=== PATIENT | female | born 1935 | race African-American/Black ===

== ENCOUNTER 2019-08-28 05:15 | Inpatient (IN) | payer MEDICARE, MEDICAID ==
[2019-08-28 05:48] LABS: #Eosinphils 0.1 thou/uL (0.0-0.7); #Lymphocytes 2.2 thou/uL (1.20-3.40); #Monocytes 0.6 thou/uL (0.11-0.59); #Neutrophils 4.7 thou/uL (1.40-6.50); %Basophils 0.5 % (0.0-1.0); %Eosinophils 1.3 % (0.0-10.0); %Lymphocytes 28.7 % (21.0-51.0); %Monocytes 7.8 % (0.0-10.0); %Neutrophils 61.7 % (42.0-75.0); Hemoglobin 10.4 g/dL (12.0-16.0); Mean Corpuscular HGB CONC 32.4 g/dL (32.0-36.0); Mean Corpuscular Hemoglobin 24.7 pg (27.0-31.0); Mean Corpuscular Volume 76.3 fL (78.0-98.0); Mean Platelet Volume 8.7 fL (7.4-10.4); Platelet Count 162 thou/uL (130-400); RBC Distribution Width 15.1 % (11.5-14.5); Red Blood Cell (RBC) Count 4.19 mill/uL (4.20-5.40); White Blood Cell (WBC) Count 7.6 thou/uL (4.8-10.8)
[2019-08-28 06:07] LABS: ALT (SGPT) 7 U/L (8-55); AST (SGOT) 17 U/L (5-34); Albumin 4.3 g/dL (3.4-4.8); Alkaline Phosphatase 119 U/L (40-110); Anion Gap 18 mmol/L (10-20); BUN (Urea Nitrogen) 27 mg/dL (9.8-20.1); Bilirubin, Total 0.3 mg/dL (0.2-1.2); Calc. Creatinine Clearance 0 mL/min (70-130); Calcium 9.5 mg/dL (7.8-10.44); Carbon Dioxide 22 mmol/L (23-31); Chloride 102 mmol/L (98-107); Estimated GFR-MDRD 44; Globulin 4.4 g/dL (2.4-3.5); Glucose 145 mg/dL (83-110); Potassium 3.6 mmol/L (3.5-5.1); Protein, Total 8.7 g/dL (6.0-8.3); Sodium 138 mmol/L (136-145)
--- NOTE | 2019-08-28 09:34 | RAD ---
CHEST 1 VIEW: Date: 08/28/19 HISTORY: Atrial fibrillation with rapid ventricular rate. COMPARISON: 11/22/16. FINDINGS: Mild vascular congestion. Heart size is within normal limits. No confluent pneumonia, overt edema, or pleural effusion. IMPRESSION: Bilateral vascular congestion. POS: [facility]
[2019-08-28 12:00] LABS: Troponin I 0.078 ng/mL (< 0.028)
[2019-08-28 15:40] VITALS: BMI 27.4
--- NOTE | 2019-08-28 18:42 | CON ---
DATE OF CONSULTATION: 08/28/2019 INDICATION FOR CONSULTATION: An 83-year-old female, who is being seen in the emergency room after she was admitted with atrial fibrillation rapid ventricular response. She has had a history of this in the past. She has been followed by Dr. Trujillo. She has severe aortic valve stenosis, was advised to undergo TAVR procedure. She has always refused to do so, but may at this time be more amenable to at least considering it. I do not know whether or not she has any underlying coronary artery disease. However, this patient has been seen also by my nurse practitioner. We have discussed the case and also she is the patient of Dr. Ortiz. At this time, she is in the emergency room. She was given IV diltiazem and she converted back to normal sinus rhythm, has remained in sinus rhythm. During the episodes of the atrial fibrillation, which started early this morning, she complains of shortness of breath, but denied any chest pain, or any further dyspnea nor did she complaint of any nausea or vomiting. At this time, once she is back in sinus rhythm, she feels quite well and she actually thought she could go home, but it is best that she be observed at least overnight to see whether or not we may start her on some type of antiarrhythmic medications. I can certainly can determine whether or not she see human service specialist and then again, we will re-explore the possibility of a TAVR. At this time, she remains stable. PAST MEDICAL HISTORY: Please refer the notes dictated by the nurse practitioner. SOCIAL HISTORY: Please refer the notes dictated by the nurse practitioner. FAMILY HISTORY: Please refer the notes dictated by the nurse practitioner. REVIEW OF SYSTEMS: Please refer the notes dictated by the nurse practitioner. MEDICATIONS: Please refer the notes dictated by the nurse practitioner. ALLERGIES: PLEASE REFER THE NOTES DICTATED BY THE NURSE PRACTITIONER. PHYSICAL EXAMINATION: GENERAL: Reveals an elderly female, who is in no acute distress at this time. She is alert. She is oriented. VITAL SIGNS: Her blood pressure is stable. Her vital signs are stable otherwise. Heart rates in the 70s, which shows a sinus rhythm at this time. Her blood pressure was 148/51 and heart rate was 71. HEENT: Shows head to be normocephalic and atraumatic. Carotid pulses are present. She has bilateral carotid bruits, which is radiating from the aortic area. CHEST: Actually was clear to auscultation without rales, rhonchi, or wheezing CARDIOVASCULAR: Reveals a regular rate and rhythm at this time. She has a harsh systolic murmur over the aortic area and also with the apex of the left ventricle, which may be some radiation from the aortic area also. Actually, the murmurs are heard over the entire precordium. GI: Abdominal exam is soft and nontender. She has positive bowel sounds. She has obesity. EXTREMITIES: No clubbing or cyanosis. She had minimal ankle edema at this time. NEUROLOGIC: She appears to be fully intact for someone of her age. LABORATORY DATA: Please refer to the notes already dictated by the nurse practitioner. IMPRESSION AND PLAN: 1. Elderly female with atrial fibrillation rapid ventricular response, which was easily converted to sinus rhythm by the use of diltiazem. She has been seen by Dr. Ortiz. I believe he started her back on her home medications, which include beta blockers, but she has been switched to metoprolol. We will continue this medication. 2. History of severe aortic valve stenosis. This will be revisited by Dr. Trujillo when he visits with the patient tomorrow, whether or not she may be a candidate to undergo transcatheter aortic valve replacement. She may need to undergo a cardiac catheterization prior to this to rule out evidence for underlying coronary artery disease, if she is agreeable to do so. As far as her other medical problems are concerned, this will be dealt with by the primary care physician. Job ID: [id number]
[2019-08-28] MEDS: Apixaban 5 MG TAB PO SCH (20:48)
--- NOTE | 2019-08-28 23:02 | CON ---
DATE OF CONSULTATION: PRIMARY CARE PHYSICIAN: Huseyin Ortiz MD PRIMARY CHECKROOM CHIEF: Jerry Canas MD REASON FOR CARDIOLOGY CONSULTATION: Atrial fibrillation with rapid ventricular response and palpitation. HISTORY OF PRESENT ILLNESS: Ms. Griffin is an 83-year-old female with significant history of hypertension, congestive heart failure, moderate to severe aortic valve stenosis, diabetes, and hyperlipidemia. The patient was doing relatively well. According to the patient's family member, the patient is always active, keep moving; however, early this morning, around 2 to 3 o'clock in a.m., she started feeling palpitation and fast beat in in her chest with a burning-like sensation in the heart. Due to those reasons, the patient's family member took this patient to the emergency department for further evaluation and treatment. The patient had diltiazem 50 mg IV push around 05:30 this morning. The patient converted back to sinus rhythm. Since then, the patient's heart rates have been 60s to 80s with sinus rhythm. Prior to, during and after the episode, the patient denies chest pain, heaviness, tightness, shortness of breath, dizziness, lightheadedness, or any other cardiac complaints except burning-like sensation in her left arm and mediastinal borders. The patient is asymptomatic at this moment with stable vital signs. The patient had echocardiograms done in November 2016 with EF 50% to 55%, left ventricular hypertrophy, MAC with mild MR and heavily calcified aortic valve with moderate to severe . The patient was recommended to have the valve replacement; however, the patient declined. Since then, the patient was doing well according to the patient's family member. However, the patient's family member states the patient's leg is swelling lately, even though she does not take much fluid intake, around 1500 mL per day. The patient has not had a stress test at this moment. The patient had a followup with Dr. Canas in the past, but in the last 1 year, she has not seen any [employer] certified network professional. 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 PAST SURGICAL HISTORY: None. The patient declined aortic valve replacement before in 2016. FAMILY HISTORY: The patient has already strong family history of cancer, CVA, hypertension, diabetes. The patient's father and one of her sister and 2 of her brothers due to myocardial infarction. ALLERGIES: SHE HAS NO KNOWN DRUG ALLERGIES. REVIEW OF SYSTEMS: 12-point review of systems negative unless otherwise mentioned in the HPI. PHYSICAL EXAMINATION: VITAL SIGNS: Blood pressure 127/59, heart rate 70s to 60s with sinus rhythm. GENERAL: The patient is alert and oriented x4, not in acute distress. HEENT: Normocephalic, atraumatic. EYES: Extraocular muscle movements intact. ENT and mouth; oral and nasal mucosa moist without lesion. NECK: Supple. Normal range of motion. No JVD. RESPIRATORY: Clear to auscultate bilaterally, but diminished at the bases. CARDIOVASCULAR: Regular rate and rhythm. Normal S1 and S2. No S3 or S4. No significant murmur, hives, or thrill noted. 2+ pulses in bilateral upper and lower extremities. No edema in the lower extremities at this moment. Carotid pulses are present with a bruit possible from murmur radiated to the bilateral carotid arteries. The patient has a positive murmur with ABDOMEN: Soft, nontender. No mass to palpitate. Bowel sounds are present. MUSCULOSKELETAL: The patient able to move all extremities without difficulty. The patient denied claudication. SKIN: Warm and dry. No lesion, rash, or erythema noted. NEUROLOGIC: The patient is alert and oriented x4, nonfocal. PSYCHIATRIC: The patient's mood is appropriate. LABORATORY DATA: WBC 7.6, hemoglobin 10.4, which is normal for her, hematocrit 32.0, platelet 162. Sodium 138, potassium 3.6, BUN 27, creatinine 1.37, glucose 145, AST 17, ALT 7. Troponin is 0.018 0.014, 0.078. BNP 81. Chest x-ray shows bilateral vascular congestion. ASSESSMENT AND PLAN: New onset atrial fibrillation with rapid ventricular response. The patient has converted back to sinus rhythm around 5:30 this morning without Cardizem 15 mg IV push. Since then, the patient remained in sinus rhythm with heart rate 70s to 80s. The patient is asymptomatic at this moment. Fortunately, she is not on any medication to stay away from atrial fibrillation at this moment. We would like to resume all the patient's home medication. She is on metoprolol succinate 50 mg once a day at home and aspirin 81 mg once a day. The patient might be discharged to home with heart monitor to continue to monitor the patient's cardiac rhythm. History of aortic valve stenosis. The patient is asymptomatic, although the patient's family member concerned about swelling in the lower extremities. She has been on Lasix 40 mg 2 tablets daily with potassium 20 mEq once a day. Echocardiogram is going to be ordered for this patient; however, the patient might be able to have the test done as outpatient setting by Dr. Canas. Acute kidney injury. The patient's creatinine level is slightly elevated today, possible dehydration. We recommend the patient have extra fluids. Hypertension. The patient's blood pressure has been stable at this moment. Hyperlipidemia. She is on simvastatin 20 mg once a day at home. Diabetes type 2. She is on metformin 500 mg once a day at home, which is managed by primary care doctor. Edema in the lower extremities. The patient's condition is stable at this moment. We like the echocardiogram, this is going to be ordered for this patient. However, again the patient might be able to take the test as an outpatient by Dr. Canas. Thank you very much for Cardiology Service to participate in the care of this patient. We will follow along the patient's care team and make further recommendations as appropriate. ADDENDUM: Atrial fibrillation: We recommend the patient start the Eliquis 5 mg twice a day, although the patient's age more than 50. The patient's kidney function is later to be stable. We would like to start Eliquis at 5 mg twice a day. However, we would like to continue to check the kidney function and we recommend to keep the patient at observation to see over the night and we would like to defer that decision to Dr. Ortiz and Dr. Canas from tomorrow. We recommend to cut down the Norvasc from 10 mg to 5 mg once a day due to swelling in the lower extremities and the patient might need some stronger antiarrhythmic medication. Job ID: [id number]
[2019-08-29 05:20] LABS: Hemoglobin 9.1 g/dL (12.0-16.0); Platelet Count 141 thou/uL (130-400)
[2019-08-29 05:21] LABS: Anion Gap 13 mmol/L (10-20); BUN (Urea Nitrogen) 17 mg/dL (9.8-20.1); Calc. Creatinine Clearance 48 mL/min (70-130); Calcium 9.1 mg/dL (7.8-10.44); Carbon Dioxide 23 mmol/L (23-31); Chloride 109 mmol/L (98-107); Estimated GFR-MDRD 65; Glucose 106 mg/dL (83-110); Potassium 3.9 mmol/L (3.5-5.1); Sodium 141 mmol/L (136-145)
[2019-08-29] MEDS: Apixaban 5 MG TAB PO SCH ×2 (09:06→20:58)
[2019-08-29] MEDS ORDERED: Insulin Regular 300 UNITS/3 ML VIAL SC PRN (11:33)
[2019-08-29] MEDS ORDERED: Dextrose 50% Abboject 50 ML SYRINGE IVP PRN (11:33)
[2019-08-29] MEDS ORDERED: Dextrose 5% in Water 1,000 ML IV PRN (11:33)
[2019-08-29 19:24] LABS: Bacteria/HPF 4+ HPF (None Seen); Bilirubin Negative (Negative); Blood, Urine Trace (Negative); Clarity Turbid (Clear); Glucose, Urine (Dipstick) Normal (Negative); Leukocyte 500 Leu/uL (Negative); Nitrite Negative (Negative); Protein, Urine (Dipstick) Negative (Neg-Trace); RBC/HPF 0-3 HPF (0-3); Squamous Epithelial 0-3 HPF (0-3); Urobilinogen Normal mg/dL (Less than 2); WBC/HPF Greater than 50 HPF (0-3)
[2019-08-29] MEDS: Atorvastatin Calcium 10 MG TAB PO SCH (20:58)
[2019-08-29] MEDS: metFORMIN 500 MG TAB PO SCH (20:58)
[2019-08-29] MEDS ORDERED: Atorvastatin Calcium 10 MG TAB PO SCH (21:00)
--- NOTE | 2019-08-29 21:37 | RAD ---
EXAM: XR Ankle Lt 3 View STANDARD PROVIDED CLINICAL HISTORY: Pain FINDINGS: There is no evidence for fracture or other acute osseous abnormality. Alignment appears anatomic. Ghazala nt spaces appear preserved. Prominence of the soft tissues about each malleolus. Plantar calcaneal enthesophyte formation. IMPRESSION: No evidence for an acute osseous abnormality. If there is persistent clinical concern, conservative m anagement and follow-up imaging advised.
--- NOTE | 2019-08-30 08:03 | HP ---
CHIEF COMPLAINT: Palpitations and heart racing. HISTORY OF PRESENT ILLNESS: Ms. Griffin is an 83-year-old from female with past medical history of hypertension, diabetes mellitus, and aortic stenosis, came because of heart pounding and racing, she woke up in the night because of the heart was racing fast. She did not have any chest pain, but she felt short of breath, so EMS was called. EMS found the patient with rapid heart rate , possibly atrial fibrillation with RVR. In the ER, the patient was asymptomatic. The patient received a dose of Cardizem after which she converted to normal sinus rhythm. Currently, she does not have any shortness of breath or chest pain. She feels better. The patient was in the hospital in 2017 with similar episode. At that time, she was thought to have SVT. PAST MEDICAL HISTORY: 1. Insulin-dependent diabetes mellitus. 2. Hypertension. 3. Hyperlipidemia. 4. History of leg edema. 5. Severe aortic stenosis. PAST SURGICAL HISTORY: Nothing significant. CURRENT MEDICATIONS: The patient is on: 1. Amlodipine 10 mg daily. 2. Lasix 80 mg daily. 3. Simvastatin 20 mg daily. 4. Aspirin 81 mg. 5. Benazepril 40 mg daily. 6. KCl 40 mEq daily. 7. Atenolol 50 mg bid 8. Metformin 500 mg bid ALLERGIES: NKDA. FAMILY HISTORY: Nothing contributory. SOCIAL HISTORY: The patient lives with her family. No history of smoking. No history of alcohol. REVIEW OF SYSTEMS: CARDIOVASCULAR: No chest pain. Has shortness of breath. RESPIRATORY: No fever or cough. GASTROINTESTINAL: No nausea or vomiting. No abdominal pain. CENTRAL NERVOUS SYSTEM: No headache. No dizziness. PHYSICAL EXAMINATION: GENERAL: The patient is alert, awake, oriented x3. VITAL SIGNS: Temperature 98, pulse 114 initially, respirations 20, blood pressure 120/60. HEENT: Head is normocephalic and atraumatic. Pupils are equal and reactive. Nasopharynx is pale and dry. NECK: Supple. No JVD. LUNGS: Bilateral air entry present. No rales, no rhonchi. HEART: S1 and S2, irregular. ABDOMEN: Soft. No distention. No tenderness. Normal bowel sounds present. RECTAL: Deferred. CENTRAL NERVOUS SYSTEM: No focal deficit. LABORATORY DATA: CBC shows WBC 7.6, hemoglobin 10, hematocrit 32, platelets 162. Metabolic panel; sodium 138, potassium 3.6, chloride 102, CO2 is 22, urea nitrogen 27, creatinine 1.3, glucose 145, alkaline phosphatase 119. Troponin I 0.018. BNP 81. EKG shows atrial fibrillation with rapid ventricular rate of 113. Initial chest x-ray shows bilateral vascular congestion. ASSESSMENT: 1. Atrial fibrillation with rapid ventricular rate. 2. Hypertension. 3. Diabetes mellitus. 4. Hyperlipidemia. 5. Severe aortic stenosis. PLAN: 1. Vital signs q.4 hours. 2. Activity as tolerated. 3. Allergies, NKDA. 4. Hep-Lock. 5. Accu-Chek before meals and at bedtime. 6. Sliding scale mild with regular insulin. 7. Troponin I q.6 hours x2. 8. Echocardiogram. 9. Continue home medications. 10. asa daily 11. Cardiology consult. Job ID: [id number] CINDY
[2019-08-30] MEDS: Potassium Chloride 20 MEQ TAB PO SCH (08:43)
[2019-08-30] MEDS: Lisinopril 20 MG TAB PO SCH (08:44)
[2019-08-30] MEDS: Aspirin 81 mg Enteric Coated Tablet PO SCH (08:44)
[2019-08-30] MEDS: metFORMIN 500 MG TAB PO SCH ×2 (08:44→20:43)
[2019-08-30] MEDS: Apixaban 5 MG TAB PO SCH ×2 (08:44→20:43)
[2019-08-30] MEDS: Amlodipine 10 MG TAB PO SCH (08:44)
[2019-08-30] MEDS: Furosemide 80 MG TAB PO SCH (08:44)
[2019-08-30] MEDS: Atorvastatin Calcium 10 MG TAB PO SCH (20:44)
[2019-08-31 04:40] LABS: #Eosinphils 0.2 thou/uL (0.0-0.7); #Lymphocytes 2.5 thou/uL (1.20-3.40); #Monocytes 0.6 thou/uL (0.11-0.59); #Neutrophils 4.2 thou/uL (1.40-6.50); %Basophils 0.2 % (0.0-1.0); %Eosinophils 2.1 % (0.0-10.0); %Lymphocytes 33.7 % (21.0-51.0); %Monocytes 7.8 % (0.0-10.0); %Neutrophils 56.2 % (42.0-75.0); Hemoglobin 8.8 g/dL (12.0-16.0); Mean Corpuscular HGB CONC 33.7 g/dL (32.0-36.0); Mean Corpuscular Hemoglobin 25.8 pg (27.0-31.0); Mean Corpuscular Volume 76.6 fL (78.0-98.0); Mean Platelet Volume 8.4 fL (7.4-10.4); Platelet Count 147 thou/uL (130-400); RBC Distribution Width 14.7 % (11.5-14.5); Red Blood Cell (RBC) Count 3.39 mill/uL (4.20-5.40); White Blood Cell (WBC) Count 7.5 thou/uL (4.8-10.8)
[2019-08-31 05:06] LABS: Anion Gap 14 mmol/L (10-20); BUN (Urea Nitrogen) 28 mg/dL (9.8-20.1); Calc. Creatinine Clearance 44 mL/min (70-130); Calcium 9.1 mg/dL (7.8-10.44); Carbon Dioxide 23 mmol/L (23-31); Chloride 106 mmol/L (98-107); Estimated GFR-MDRD 59; Glucose 101 mg/dL (83-110); Potassium 3.6 mmol/L (3.5-5.1); Sodium 139 mmol/L (136-145)
[2019-08-31] MEDS: metFORMIN 500 MG TAB PO SCH ×2 (09:29→20:28)
[2019-08-31] MEDS: Potassium Chloride 20 MEQ TAB PO SCH (09:29)
[2019-08-31] MEDS: Aspirin 81 mg Enteric Coated Tablet PO SCH (09:30)
[2019-08-31] MEDS: Apixaban 5 MG TAB PO SCH ×2 (09:30→20:28)
[2019-08-31] MEDS: Lisinopril 20 MG TAB PO SCH (09:30)
[2019-08-31] MEDS: Furosemide 80 MG TAB PO SCH (09:30)
[2019-08-31] MEDS: Amlodipine 10 MG TAB PO SCH (09:30)
[2019-08-31] MEDS: Atorvastatin Calcium 10 MG TAB PO SCH (20:27)
[2019-09-01 05:12] LABS: Hemoglobin 8.5 g/dL (12.0-16.0); Platelet Count 168 thou/uL (130-400)
[2019-09-01 05:32] LABS: Anion Gap 15 mmol/L (10-20); BUN (Urea Nitrogen) 37 mg/dL (9.8-20.1); Calc. Creatinine Clearance 44 mL/min (70-130); Calcium 9.2 mg/dL (7.8-10.44); Carbon Dioxide 23 mmol/L (23-31); Chloride 104 mmol/L (98-107); Estimated GFR-MDRD 53; Glucose 100 mg/dL (83-110); Potassium 3.9 mmol/L (3.5-5.1); Sodium 138 mmol/L (136-145)
[2019-09-01] MEDS: Apixaban 5 MG TAB PO SCH (09:17)
[2019-09-01] MEDS: Lisinopril 20 MG TAB PO SCH (09:17)
[2019-09-01] MEDS: Furosemide 80 MG TAB PO SCH (09:17)
[2019-09-01] MEDS: metFORMIN 500 MG TAB PO SCH (09:17)
[2019-09-01] MEDS: Potassium Chloride 20 MEQ TAB PO SCH (09:18)
[2019-09-01] MEDS ORDERED: Lisinopril 20 MG TAB PO SCH (09:45)
[2019-09-01 11:27] VITALS: BP 100/57; TEMP 98.8
[2019-09-01 14:04] LABS: Iron 25 ug/dL (50-170); Iron Binding Capacity, Total 305 mcg/dL (265-497)
[2019-09-02] MEDS ORDERED: Lisinopril 20 MG TAB PO SCH (09:00)
--- NOTE | 2019-09-03 01:45 | PQF ---
BEA BLOCK VENKAT R MD [id number] [facility] [id number] CLINICAL DOCUMENTATION CLARIFICATION FORM: POST DISCHARGE Addendum to original discharge summary date: ____ Late entry note date: __ DATE: 09/03/19 ATTN: Huseyin Mondragon Please exercise your independent, professional judgment in responding to the clarification form. Clinical indicators are provided on the bottom of this form for your review Can you please further clarify the type and acuity of CHF? Please check appropriate box(s): HEART FAILURE: A. TYPE: [ ] Systolic / HFrEF [ y ] Diastolic / HFpEF [ ] Combined Systolic / Diastolic B. ACUITY [ ] Acute [ ] Acute on Chronic [ y ] Chronic [ ] Other diagnosis [ ] Unable to determine In addition, please specify: Present on Admission (POA): [ y] Yes [ ] No [ ] Unable to determine For continuity of documentation, please document condition throughout progress notes and discharge summary. Thank You. CLINICAL INDICATORS - SIGNS / SYMPTOMS / LABS ED Notes 08/28 "Associated with SOB" ED Notes 08/28 "patient presents for evaluation of heart racing and irregular heart beat" Chest Xray 08/28 "bilateral vascular congestion" Consult 08/28 "Echo was done in November 2016 with EF 50%-55%" Consult 08/28 "patient's leg is swelling lately" RISKS: ED Notes 08/28-83 years old female ED Notes 08/28-Afib ED Notes 08/28-HTN ED Notes 08/28-DM Consult 08/28-Aortic stenosis Consult 08/28-HLD TREATMENTS: Collected 08/28-Chest Xray HP 08/28-Echo HP 08/28-Cardiology consult NOV 27-Cardizem 25mg IV NOV 27-Eliquis 5mg Oral NOV 27-IVF NOV 27-Lipitor 10mg Oral MAR 08/30-Lasix 80mg Oral (This form is maintained as a part of the permanent medical record) 2014 [employer]. All Rights Reserved [email or web address] [not provided] MTDD
--- NOTE | 2019-09-04 18:27 | DIS ---
DATE OF ADMISSION: 08/28/2019 DATE OF DISCHARGE: 09/01/2019 ADMITTING DIAGNOSES: 1. Atrial fibrillation with rapid ventricular rate. 2. Hypertension. 3. Diabetes mellitus. 4. Severe aortic stenosis. FINAL DIAGNOSES: 1. Atrial fibrillation with rapid ventricular rate, improved. 2. Left ankle injury, contusion. 3. Hypertension. 4. Diabetes mellitus. 5. Severe aortic stenosis. 6. Hyperlipidemia. BRIEF SUMMARY OF HOSPITAL COURSE: Ms. Griffin is an 83-year-old -[place] female, admitted because of heart pumping fast, palpitation, dizziness. The patient was found to be in atrial fib with RVR. She was given Cardizem and IVP, after which she changed to normal sinus rhythm. Cardiology consult was done. The patient was seen by Dr. Conroy, who suggested to continue with metoprolol. She also says aortic stenosis, may be can be re-evaluated by Dr. Trujillo. Dr. Trujillo saw the patient later on and increased the dose of metoprolol. The patient remained in normal sinus rhythm throughout her hospital stay. The patient complained of left ankle pain. X-rays revealed no fracture. Sharan bandage was applied. The patient is ambulating well. No shortness of breath. In view of improvement, the patient is being discharged home. At the time of discharge, she was stable, her vital signs stable, lungs clear, heart sound regular, abdomen is soft and nontender. Bowel sounds present. DISCHARGE MEDICATIONS: 1. Lasix 80 mg daily. 2. Simvastatin 20 mg daily. 3. Metoprolol succinate 50 mg daily. 4. Eliquis 5 mg b.i.d. 5. Lisinopril 20 mg daily. 6. Metformin 250 b.i.d. 7. KCl 40 mEq daily. Her benazepril was discontinued. Aspirin was also discontinued. Amlodipine was also discontinued. FOLLOWUP: The patient will come for followup in 2 weeks. Job ID: [id number]
== END 2019-09-01 14:51 | disposition home or self-care (01) | DRG 309 ==
LOC: ERS 05:15 → ERHOLD 05:42 → 2NO 18:26
PROVIDERS: ADMIT Internal Medicine; ATTEND Internal Medicine
DX: I48.91 Unspecified atrial fibrillation (principal); N17.9 Acute kidney failure, unspecified; I50.32 Chronic diastolic (congestive) heart failure; E11.9 Type 2 diabetes mellitus without complications; I11.0 Hypertensive heart disease with heart failure; E78.5 Hyperlipidemia, unspecified; I34.0 Nonrheumatic mitral (valve) insufficiency; H91.92 Unspecified hearing loss, left ear; Z79.82 Long term (current) use of aspirin; Z79.899 Other long term (current) drug therapy; Z95.2 Presence of prosthetic heart valve; Z79.84 Long term (current) use of oral hypoglycemic drugs
CPT/HCPCS: 36415; 36416; 71045; 80048; 80053; 81001; 82607; 82728; 82746; 83540; 83550; 83880; 84484; 85014; 85018; 85025; 85049; 93005; 96374; J1815

== ENCOUNTER 2019-09-14 05:01 | Inpatient (IN) | payer MEDICARE, MEDICAID ==
[2019-09-14 05:48] LABS: #Basophils 0.1 thou/uL (0.0-0.2); #Eosinphils 0.1 thou/uL (0.0-0.7); #Lymphocytes 2.7 thou/uL (1.20-3.40); #Monocytes 0.4 thou/uL (0.11-0.59); #Neutrophils 4.3 thou/uL (1.40-6.50); %Basophils 0.8 % (0.0-1.0); %Eosinophils 1.2 % (0.0-10.0); %Lymphocytes 35.2 % (21.0-51.0); %Monocytes 5.5 % (0.0-10.0); %Neutrophils 57.3 % (42.0-75.0); Hemoglobin 6.2 g/dL (12.0-16.0); Mean Corpuscular Hemoglobin 25.5 pg (27.0-31.0); Mean Corpuscular Volume 77.3 fL (78.0-98.0); Mean Platelet Volume 7.4 fL (7.4-10.4); Platelet Count 240 thou/uL (130-400); RBC Distribution Width 14.8 % (11.5-14.5); Red Blood Cell (RBC) Count 2.44 mill/uL (4.20-5.40); White Blood Cell (WBC) Count 7.6 thou/uL (4.8-10.8)
[2019-09-14 06:11] LABS: ALT (SGPT) 8 U/L (8-55); AST (SGOT) 11 U/L (5-34); Albumin 3.6 g/dL (3.4-4.8); Alkaline Phosphatase 73 U/L (40-110); Anion Gap 14 mmol/L (10-20); BUN (Urea Nitrogen) 63 mg/dL (9.8-20.1); Bilirubin, Total 0.2 mg/dL (0.2-1.2); Calc. Creatinine Clearance 0 mL/min (70-130); Calcium 8.9 mg/dL (7.8-10.44); Carbon Dioxide 23 mmol/L (23-31); Chloride 102 mmol/L (98-107); Estimated GFR-MDRD 35; Globulin 3.5 g/dL (2.4-3.5); Glucose 107 mg/dL (83-110); Potassium 4.4 mmol/L (3.5-5.1); Protein, Total 7.1 g/dL (6.0-8.3); Sodium 135 mmol/L (136-145)
--- NOTE | 2019-09-14 07:54 | RAD ---
EXAM: Single view of the chest HISTORY: Substernal chest pain COMPARISON: 08/28/2019 FINDINGS: Single view of the chest shows a normal sized cardiomediastinal silhouette. There is no donna dence of consolidation, mass, or pleural effusion. Degenerative changes are seen in the spine. IMPRESSION: No evidence of acute cardiopulmonary disease
[2019-09-14 09:38] VITALS: BMI 30.9
[2019-09-14 09:49] LABS: Troponin I Less than 0.010 ng/mL (< 0.028)
[2019-09-14] MEDS ORDERED: Dextrose 50% Abboject 50 ML SYRINGE IVP PRN (10:53)
[2019-09-14] MEDS ORDERED: Dextrose 5% in Water 1,000 ML IV PRN (10:53)
[2019-09-14] MEDS ORDERED: Insulin Regular 300 UNITS/3 ML VIAL SC PRN (10:53)
[2019-09-14 11:31] LABS: #Eosinphils 0.1 thou/uL (0.0-0.7); #Lymphocytes 2.6 thou/uL (1.20-3.40); #Monocytes 0.5 thou/uL (0.11-0.59); #Neutrophils 4.5 thou/uL (1.40-6.50); %Basophils 0.4 % (0.0-1.0); %Eosinophils 1.2 % (0.0-10.0); %Lymphocytes 33.8 % (21.0-51.0); %Monocytes 6.5 % (0.0-10.0); %Neutrophils 58.1 % (42.0-75.0); Mean Corpuscular HGB CONC 33.4 g/dL (32.0-36.0); Mean Corpuscular Hemoglobin 26.2 pg (27.0-31.0); Mean Corpuscular Volume 78.4 fL (78.0-98.0); Mean Platelet Volume 7.4 fL (7.4-10.4); Platelet Count 218 thou/uL (130-400); RBC Distribution Width 14.9 % (11.5-14.5); Red Blood Cell (RBC) Count 2.67 mill/uL (4.20-5.40); White Blood Cell (WBC) Count 7.7 thou/uL (4.8-10.8)
[2019-09-14 11:50] LABS: Anion Gap 14 mmol/L (10-20); BUN (Urea Nitrogen) 60 mg/dL (9.8-20.1); Calc. Creatinine Clearance 36 mL/min (70-130); Calcium 8.7 mg/dL (7.8-10.44); Carbon Dioxide 21 mmol/L (23-31); Chloride 106 mmol/L (98-107); Estimated GFR-MDRD 43; Glucose 93 mg/dL (83-110); Potassium 4.5 mmol/L (3.5-5.1); Sodium 136 mmol/L (136-145)
[2019-09-14 11:56] LABS: Troponin I 0.036 ng/mL (< 0.028)
[2019-09-14] MEDS ORDERED: Sodium Chloride 0.9% (PF) 10 ML VIAL FS PRN (14:55)
[2019-09-14] MEDS ORDERED: Pantoprazole 40 MG VIAL IVP SCH (15:00)
--- NOTE | 2019-09-14 21:23 | HP ---
CHIEF COMPLAINT: Chest tightness, palpitation, shortness of breath. HISTORY OF PRESENT ILLNESS: Ms. Griffin is an 83-year-old female with past medical history of severe aortic stenosis, hypertension, atrial fibrillation; anemia, chronic, came because of started having palpitation and chest tightness and had some shortness of breath also. Lasted a few minutes and it was not getting better and the chest tightness was started getting worse, so she called ambulance. EMS gave her nitroglycerin spray. By the time she came to the hospital, her chest tightness and palpitation resolved. The patient also says she has been feeling weak, has been dizzy as well, but no nausea or vomiting. No headache. No fever. The patient was also found to be severely anemic while in the ER. Hemoglobin was 6.2. The patient was recently in the hospital with atrial fibrillation with rapid ventricular rate at that time. When she left the hospital, her hemoglobin was 8.5. The patient denies any melenic stool or blood in stool. The patient has been placed on Eliquis for her atrial fibrillation on the last admission. Currently, the patient does not have any chest pain. PAST MEDICAL HISTORY: 1. Severe aortic stenosis. 2. Hypertension. 3. Diabetes mellitus. 4. Chronic anemia. 5. Hyperlipidemia. 6. History of atrial fibrillation converted to normal sinus. PAST SURGICAL HISTORY: Nothing significant. CURRENT MEDICATIONS: The patient is on: 1. Eliquis 5 mg b.i.d. 2. Lasix 80 mg daily. 3. Lisinopril 20 mg daily. 4. Metformin 500 b.i.d. 5. Metoprolol 50 mg daily. 6. KCl 20 mEq daily. 7. Simvastatin 20 mg daily. ALLERGIES: NKDA. FAMILY HISTORY: Nothing contributory. SOCIAL HISTORY: The patient lives with family. No history of smoking. No history of alcohol or drug abuse. REVIEW OF SYSTEMS: CARDIOVASCULAR: Has chest pain and shortness of breath. RESPIRATORY: No fever or cough. GASTROINTESTINAL: No abdominal pain. No distention. No nausea or vomiting. CENTRAL NERVOUS SYSTEM: No headache. Has dizziness. PHYSICAL EXAMINATION: GENERAL: The patient is alert, awake, oriented x3. VITAL SIGNS: Temperature 98, pulse 76, respirations 20, blood pressure 130/50. HEENT: Head is normocephalic, atraumatic. Pupils are equal and reactive. Nasopharynx is pale and dry. NECK: Supple. No JVD. LUNGS: Bilateral air entry present. No rales, no rhonchi. HEART: S1 and S2, regular. ABDOMEN: Soft. No distention. No tenderness. No organomegaly. Bowel sounds present. NEUROLOGICAL: No focal deficit. LABORATORY DATA: CBC shows WBC 7.6, hemoglobin 6.2, hematocrit 18, platelets 240. Metabolic panel; sodium 135, potassium 4.4, chloride 100, glucose 107. EKG shows normal sinus rhythm with right bundle branch block and left anterior fascicular block. No acute ST-T changes seen. Chest x-ray negative. ASSESSMENT: 1. Severe anemia, symptomatic. 2. Chest pain, shortness of breath, rule out myocardial infarction. 3. Severe aortic stenosis. 4. History of atrial fibrillation. 5. Diabetes mellitus. 6. Hypertension. PLAN: 1. Vital signs q.4 hours. 2. Activity as tolerated. 3. Allergies, NKDA. 4. Hep-Lock. 5. Diet, ADA. 6. Continue home medications. 7. Accu-Chek before meals and at bedtime and sliding scale mild with regular insulin. 8. Protonix 40 IV piggyback daily. 9. Echocardiogram. 10. GI consult. 11. Cardiology consult. Job ID: [id number] MTDD
[2019-09-14] MEDS: Atorvastatin Calcium 10 MG TAB PO SCH (21:29)
[2019-09-14] MEDS: metFORMIN 500 MG TAB PO SCH (21:29)
--- NOTE | 2019-09-14 22:32 | CON ---
DATE OF CONSULTATION: PRIMARY CRM DYNAMICS DEVELOPER: Evan Trujillo MD. REASON FOR ADMISSION: Shortness of breath, palpitations, aortic stenosis, and anemia. HISTORY OF PRESENT ILLNESS: Ms. Griffin is a delightful 83-year-old woman. She recently was hospitalized on 08/28, of this year with palpitations and feeling of her heart racing. She is found to be in atrial fibrillation. She received Cardizem. The patient was started on Eliquis and released home. She previously had been known to have moderate to severe aortic stenosis in 2017. At that time, she declined a potential aortic valve replacement, but the patient is reconsidering that now. The patient's most symptoms in this admission were weakness, fatigue, lack of energy, and palpitations. She is also found to be severely anemic on this admission. She has received packed red blood cells. She did not have chest pain, but did have palpitations. PAST MEDICAL HISTORY: 1. Insulin-dependent diabetes mellitus. 2. Hypertension. 3. Aortic stenosis. 4. Edema. MEDICATIONS: Prior to admission, 1. Lasix 80 mg a day. 2. Metoprolol succinate 50 mg a day. 3. Apixaban 5 mg twice a day. 4. Lisinopril 20 mg a day. 5. Potassium. 6. Metformin. ALLERGIES: NONE KNOWN. SOCIAL HISTORY: No alcohol or tobacco. She does have a very supportive family. REVIEW OF SYSTEMS: CONSTITUTIONAL: No significant weight gain or loss. VISION: No changes. HEARING: No changes. PULMONARY: No cough or wheezing. GASTROINTESTINAL: No nausea, vomiting, or diarrhea. SKIN: No rashes. NEUROLOGICAL: No unilateral weakness or numbness. PSYCHIATRIC: No unusual depression or anxiety. PHYSICAL EXAMINATION: GENERAL: This is a pleasant 83-year-old woman, in no distress. VITAL SIGNS: Blood pressure 107/50, pulse now 60. HEENT: Eyes, sclerae nonicteric. Mouth, mucous membranes moist. NECK: Supple. No lymphadenopathy. LUNGS: Clear. CARDIAC: Normal S1, normal S2. There is a 3/6 crescendo-decrescendo murmur heard loudest at the left upper sternal border. No diastolic murmur. No S3. ABDOMEN: Soft, nontender. EXTREMITIES: No clubbing or cyanosis. There is mild peripheral edema. SKIN: Warm and dry. PSYCHIATRIC: Mood and affect normal. NEUROLOGICAL: Grossly normal. LABORATORY DATA: The patient has received 2 units of packed red blood cells. The most recent hemoglobin is still severely depressed at 7, it was 6.2 at 5:30 in the morning, it was 8.5 just before she left, it is 10.4 on admission on 08/28. ASSESSMENT: 1. Aortic stenosis, moderate to severe in 2017, likely severe now. 2. She has a bifascicular block on EKG. 3. Anemia, likely due to GI blood loss. PLAN: 1. Agree with stopping Eliquis. 2. Agree with packed red blood cells. 3. Will need GI evaluation once the Eliquis levels are low in 1 to 2 days and will undergo further evaluation. 4. Ultimately consider cardiac catheterization and transcutaneous aortic valve replacement. Echocardiogram to be done first tomorrow. The patient is considering the possibility of having her valve replaced if it could be done percutaneously. Job ID: [id number]
[2019-09-15 03:04] LABS: #Eosinphils 0.1 thou/uL (0.0-0.7); #Lymphocytes 2.6 thou/uL (1.20-3.40); #Monocytes 0.5 thou/uL (0.11-0.59); #Neutrophils 4.8 thou/uL (1.40-6.50); %Basophils 0.5 % (0.0-1.0); %Eosinophils 1.3 % (0.0-10.0); %Lymphocytes 32.8 % (21.0-51.0); %Monocytes 5.7 % (0.0-10.0); %Neutrophils 59.7 % (42.0-75.0); Hemoglobin 8.2 g/dL (12.0-16.0); Mean Corpuscular HGB CONC 33.3 g/dL (32.0-36.0); Mean Corpuscular Hemoglobin 26.6 pg (27.0-31.0); Mean Corpuscular Volume 79.9 fL (78.0-98.0); Mean Platelet Volume 7.1 fL (7.4-10.4); Platelet Count 224 thou/uL (130-400); RBC Distribution Width 14.6 % (11.5-14.5); Red Blood Cell (RBC) Count 3.09 mill/uL (4.20-5.40); White Blood Cell (WBC) Count 8.1 thou/uL (4.8-10.8)
[2019-09-15 03:27] LABS: Anion Gap 14 mmol/L (10-20); BUN (Urea Nitrogen) 49 mg/dL (9.8-20.1); Calc. Creatinine Clearance 38 mL/min (70-130); Calcium 9.1 mg/dL (7.8-10.44); Carbon Dioxide 21 mmol/L (23-31); Chloride 107 mmol/L (98-107); Estimated GFR-MDRD 45; Glucose 90 mg/dL (83-110); Potassium 4.5 mmol/L (3.5-5.1); Sodium 137 mmol/L (136-145)
[2019-09-15] MEDS: Potassium Chloride 20 MEQ TAB PO SCH (08:54)
[2019-09-15] MEDS: metFORMIN 500 MG TAB PO SCH ×2 (08:54→19:53)
[2019-09-15] MEDS: Pantoprazole 40 MG VIAL IVP SCH (08:54)
[2019-09-15] MEDS: Lisinopril 20 MG TAB PO SCH (08:55)
[2019-09-15] MEDS ORDERED: Furosemide 80 MG TAB PO SCH (09:00)
--- NOTE | 2019-09-15 12:53 | PRG ---
DATE OF SERVICE: 09/15/2019 SUBJECTIVE: Ms. Kendrick Griffin is a very pleasant 83-year-old female with mild stenosis, recently diagnosed atrial fibrillation. She was placed on Eliquis about 10 days ago. She presented to the ER with anemia, dyspnea, and history of black tarry stool. She had a stool last night and the stool was dark as per the patient's family. The stool was sent for stool guaiac, and surprisingly, the fecal occult blood came back negative. The patient actually feeling better after transfusion. Denies any chest pain, any palpitation, or any dyspnea. No abdominal pain. No nausea or vomiting. OBJECTIVE: VITAL SIGNS: Afebrile. Temperature 98.3 degrees Fahrenheit, pulse is 69, blood pressure 105/50. CARDIOVASCULAR SYSTEM: First and second heart sounds. She has a grade 4/6 systolic murmur. LUNGS: Clear to auscultation. ABDOMEN: Soft. Abdomen is nontender. No organomegaly. No masses. CLINICAL IMPRESSION: Acute anemia, possibly upper GI bleeding. Surprisingly, the stool guaiac came back negative for occult blood. PLAN: EGD tomorrow morning and I will make further recommendations. Job ID: [id number]
--- NOTE | 2019-09-15 16:50 | PRG ---
DATE OF SERVICE: 09/15/2019 SUBJECTIVE: Ms. Griffin is doing fine. No complaints. She feels well. OBJECTIVE: VITAL SIGNS: Blood pressure 120/57; pulse 58, it is regular. LUNGS: Clear. CARDIAC: There is a loud aortic stenosis murmur as before. ABDOMEN: Soft and nontender. EXTREMITIES: No edema. IMAGING STUDIES: Echocardiogram shows she has normal left ventricular function, but she has severe aortic stenosis with peak gradient 90 mmHg, mean gradient 52 mmHg. ASSESSMENT: 1. Anemia, likely related to gastrointestinal blood loss. Hemoglobin is now up to 8.2. 2. Severe aortic stenosis. PLAN: 1. She will undergo upper endoscopy to see if there is evidence of an area of GI blood loss. 2. Ultimately, she would need to undergo cardiac catheterization for consideration for transcutaneous aortic valve replacement. Okay to proceed to upper endoscopy tomorrow with sedation. We need to find out if there is a GI blood loss source prior to any interventions. Job ID: [id number]
[2019-09-15] MEDS: Atorvastatin Calcium 10 MG TAB PO SCH (19:53)
[2019-09-16] MEDS: metFORMIN 500 MG TAB PO SCH ×2 (09:25→21:16)
[2019-09-16] MEDS: Furosemide 40 MG TAB PO SCH (09:25)
[2019-09-16] MEDS: Pantoprazole 40 MG VIAL IVP SCH (09:25)
[2019-09-16] MEDS: Potassium Chloride 20 MEQ TAB PO SCH (09:25)
[2019-09-16] MEDS: Lisinopril 20 MG TAB PO SCH (09:25)
[2019-09-16] MEDS ORDERED: PHENYLEPHRINE-NS 100 MCG/ML 10 ML SYRINGE ONE (10:32)
[2019-09-16] MEDS ORDERED: Lidocaine 1% PF 5 ML VIAL ONE (10:32)
[2019-09-16] MEDS ORDERED: PROPOFOL 200 MG/20 ML VIAL ONE (10:33)
[2019-09-16] MEDS ORDERED: Ondansetron HCl/PF 4 MG/2 ML Vial IVP PRN (14:19)
--- NOTE | 2019-09-16 16:37 | OP ---
DATE OF PROCEDURE: 09/16/2019 PROCEDURE PERFORMED: Esophagogastroduodenoscopy with control of hemorrhage. INDICATIONS FOR PROCEDURE: Anemia, melena while on anticoagulation. DESCRIPTION OF PROCEDURE: After the risks and benefits of the procedure were explained to the patient, including risks of bleeding, infection, perforation, reactions to anesthesia, aspiration and/or pain, informed consent was obtained. The patient was then taken to the endoscopy suite, where she was placed in the left lateral decubitus position, followed by the introduction of propofol via Anesthesia support. Once adequate sedation was achieved, the standard gastroscope was introduced into the mouth with intubation of the esophagus, stomach, and the proximal small intestines with the findings listed below. Upon conclusion of the procedure, all equipment was removed from the patient and she was transferred to PACU in satisfactory condition. FINDINGS: Esophagus: Normal-appearing mucosa was seen in the proximal and mid esophagus with what appeared to be possible glycogenic acanthosis; however, salmon-colored mucosa was seen in the distal esophagus extending up from the gastroesophageal junction in 1 tongue, but was less than 1 cm in length. Biopsies were not taken given the small length of this particular section of Champagne's type mucosa. Otherwise, there was no evidence of erosions, ulcerations, mass lesions, or active/recent bleeding. Stomach: Normal-appearing mucosa was seen in the gastric cardia, fundus, body, greater curvature, antrum, and incisura upon initial evaluation; however, with manipulation with the scope, small blood clots were noted along the incisura. They were successfully treated with argon plasma coagulation. In the course of using the APC and further manipulation of the gastric mucosa, another area of bleeding was also noted, that was also successfully treated with APC along the lesser curvature. Otherwise, there was no evidence of erosions, ulcerations, or mass lesions. 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 This was intervened upon with argon plasma coagulation with good hemostasis achieved at the end of the maneuver and no further bleeding seen. Further examination did not reveal any further AVMs including the third portion of the duodenum. There was otherwise no evidence of erosions, ulcerations, or mass lesions. IMPRESSION: 1. 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 2. Increased mucosal friability of the gastric mucosa status post argon plasma coagulation. 3. Champagne's type mucosa in the distal esophagus, but less than 1 cm in length (not biopsied during this examination given low likelihood of progression adenocarcinoma). 4. Glycogenic acanthosis of the esophagus. RECOMMENDATIONS: 1. Would continue to trend her hemoglobin and hematocrit and transfuse as necessary to maintain hemoglobin and hematocrit of 7/21. 2. Continue to monitor clinically for signs of active GI bleeding. 3. Would hold any anticoagulation for at least the next 3 to 4 days and then consider restarting with careful monitoring of the patient afterwards. 4. Would continue the patient on PPI 40 mg daily. 5. Advance the patient's diet as tolerated. 6. No further EGD is indicated at this time. We will continue to follow. Please call with any questions. Job ID: [id number]
[2019-09-16] MEDS: Atorvastatin Calcium 10 MG TAB PO SCH (21:16)
[2019-09-17 05:36] LABS: #Eosinphils 0.1 thou/uL (0.0-0.7); #Lymphocytes 1.8 thou/uL (1.20-3.40); #Monocytes 0.5 thou/uL (0.11-0.59); #Neutrophils 6.3 thou/uL (1.40-6.50); %Basophils 0.4 % (0.0-1.0); %Lymphocytes 20.3 % (21.0-51.0); %Monocytes 5.9 % (0.0-10.0); %Neutrophils 72.4 % (42.0-75.0); Hemoglobin 8.4 g/dL (12.0-16.0); Mean Corpuscular HGB CONC 30.8 g/dL (32.0-36.0); Mean Corpuscular Hemoglobin 24.9 pg (27.0-31.0); Mean Corpuscular Volume 80.8 fL (78.0-98.0); Mean Platelet Volume 7.1 fL (7.4-10.4); Platelet Count 240 thou/uL (130-400); RBC Distribution Width 15.1 % (11.5-14.5); Red Blood Cell (RBC) Count 3.36 mill/uL (4.20-5.40); White Blood Cell (WBC) Count 8.7 thou/uL (4.8-10.8)
[2019-09-17 05:48] LABS: Anion Gap 13 mmol/L (10-20); BUN (Urea Nitrogen) 27 mg/dL (9.8-20.1); Calc. Creatinine Clearance 35 mL/min (70-130); Calcium 9.2 mg/dL (7.8-10.44); Carbon Dioxide 25 mmol/L (23-31); Chloride 104 mmol/L (98-107); Estimated GFR-MDRD 41; Glucose 97 mg/dL (83-110); Potassium 4.9 mmol/L (3.5-5.1); Sodium 137 mmol/L (136-145)
[2019-09-17] MEDS: metFORMIN 500 MG TAB PO SCH ×2 (08:29→20:58)
[2019-09-17] MEDS: Pantoprazole 40 MG VIAL IVP SCH (08:29)
[2019-09-17] MEDS: Furosemide 40 MG TAB PO SCH (08:29)
[2019-09-17] MEDS: Potassium Chloride 20 MEQ TAB PO SCH (08:29)
[2019-09-17] MEDS: Lisinopril 20 MG TAB PO SCH (08:29)
--- NOTE | 2019-09-17 11:37 | PRG ---
DATE OF SERVICE: 09/17/2019 SUBJECTIVE: An 83-year-old black female hospitalized over the weekend because of drop in blood count. The anemia is actually acute. The patient underwent EGD by Dr. Abel Kirkland yesterday. She was found to have a bleeding AVM over the duodenum, which was cauterized. The patient done well overnight. She has no abdominal pain. No nausea or vomiting. Her blood count is actually stable today at 8.4. She has had no stool overnight. She complains of some dizziness when she stands up. PHYSICAL EXAMINATION: GENERAL: She is awake and appears comfortable. VITAL SIGNS: Afebrile. Pulse rate had gone up to 110 today. Blood pressure is 91/52. CARDIOVASCULAR SYSTEM: First and second heart sounds are normal. She has systolic murmur. LUNGS: Clear to auscultation. ABDOMEN: Soft. No organomegaly. No tenderness. LABORATORY DATA: The lab data remains same as two days ago. Hemoglobin is 8.4, hematocrit 27.1, WBC 8700. RECOMMENDATION: 1. Iron supplement. 2. Diet as tolerated. 3. Follow up H and H. Job ID: [id number]
[2019-09-17] MEDS: Atorvastatin Calcium 10 MG TAB PO SCH (20:58)
[2019-09-18] MEDS ORDERED: Lisinopril 10 MG TAB PO SCH (09:00)
[2019-09-18] MEDS: Furosemide 40 MG TAB PO SCH (09:12)
[2019-09-18] MEDS: metFORMIN 500 MG TAB PO SCH (09:20)
[2019-09-18] MEDS: Potassium Chloride 20 MEQ TAB PO SCH (09:20)
[2019-09-18] MEDS: Pantoprazole 40 MG VIAL IVP SCH (09:21)
--- NOTE | 2019-09-18 11:11 | PDOC.CPN ---
- Subjective Date: 09/18/19 Time: 11:11 Interval history: The pt seen and examined. No overnight events. No cardiac complaints. - Objective Allergies/Adverse Reactions: Allergies Allergy/AdvReac Type Severity Reaction Status Date / Time No Known Allergies Allergy Verified 08/28/19 15:33 Visit Medications: Current Medications Atorvastatin Calcium (Lipitor) 10 mg PO HS [facility] Last Admin: 09/17/19 20:58 Dose: 10 mg Dextrose/Water (Dextrose 50%) 25 gm IVP PRN PRN PRN Reason: HYPOGLYCEMIA PROTOCOL Furosemide (Lasix) 40 mg PO DAILY [facility] Last Admin: 09/18/19 09:12 Dose: Not Given Glucagon (Glucagon) 1 mg IM PRN PRN PRN Reason: HYPOGLYCEMIA PROTOCOL Dextrose/Water (D5w) 1,000 mls @ 0 mls/hr IV INF PRN PRN Reason: HYPOGLYCEMIA PROTOCOL Insulin Human Regular (Humulin R) 0 units SC .MILD SLIDING PRN; Protocol PRN Reason: MILD SLIDING SCALE Lisinopril (Zestril) 10 mg PO DAILY [facility] Last Admin: 09/18/19 09:12 Dose: Not Given Metformin HCl (Glucophage) 500 mg PO BID [facility] Last Admin: 09/18/19 09:20 Dose: 500 mg Metoprolol Succinate (Toprol Xl) 50 mg PO DAILY [facility] Last Admin: 09/18/19 09:21 Dose: Not Given Pantoprazole Sodium (Protonix) 40 mg IVP DAILY [facility] Last Admin: 09/18/19 09:21 Dose: 40 mg Potassium Chloride (K-Dur) 20 meq PO DAILY [facility] Last Admin: 09/18/19 09:20 Dose: 20 meq Sodium Chloride (Normal Saline Pf) 10 ml FS PRN PRN PRN Reason: RECONSTITUTION Vital Signs & Weight: Vital Signs Temp Pulse Resp BP Pulse Ox 09/18/19 07:46 98.7 F 60 18 102/50 L 98 09/18/19 04:30 98.5 F 60 16 92/43 L 98 09/17/19 23:22 99.2 F 62 16 102/50 L 99 Weight 172 lb 3.2 oz - Physical Exam General: alert & oriented x3 HEENT: mucus membranes moist Neck: supple neck Cardiac: regular rate and rhythm, S1/S2 Lungs: clear to auscultation Neuro: cranial nerve 2-12 intact - Labs Result Diagrams: 09/17/19 04:58 12/31/19 04:58 Troponin/CKMB Troponin I 0.036 ng/mL (< 0.028) H 09/14/19 11:05 - Telemetry Sinus rhythms and dysrhythmias: sinus rhythm - Assessment/Plan Assessment/Plan: 1. Severe - possible RHC and TAVR? 2. Anemia with s/p EGD with cauterization of ulcer on 09/16/2019 - H&H is stable ; managed by GI 3. Prox Afib - in SR; on BBlocker, but not on OAC due to GI bleed MAR reviewed * Echo in 08/2019 with EF 60-65%, mild MR and PAP, severe with peak gradient 90mmHg * Pt. of Dr Trujillo Pt. seen and eval. by me. I agree with the A/P by the VERMIN EXTERMINATOR. Repeat echo today with Pedoff probe still indicates severe . She is considering a possible TAVR. She will need further workup in the near futue when the Hgb. is stable in order to see if she is a candidate. She is feeling better and eating today. chest clear. RRR, murmur. gjmays
[2019-09-18] MEDS: Atorvastatin Calcium 10 MG TAB PO SCH (19:45)
[2019-09-19] MEDS: Pantoprazole 40 MG VIAL IVP SCH (08:59)
[2019-09-19] MEDS ORDERED: Lisinopril 5 MG TAB PO SCH (09:00)
[2019-09-19] MEDS ORDERED: metFORMIN 500 MG TAB PO SCH (09:00)
[2019-09-19] MEDS: Potassium Chloride 20 MEQ TAB PO SCH (09:01)
[2019-09-19] MEDS: Atorvastatin Calcium 10 MG TAB PO SCH (21:22)
[2019-09-20 05:38] LABS: #Basophils 0.1 thou/uL (0.0-0.2); #Eosinphils 0.1 thou/uL (0.0-0.7); #Lymphocytes 1.8 thou/uL (1.20-3.40); #Monocytes 0.6 thou/uL (0.11-0.59); #Neutrophils 3.2 thou/uL (1.40-6.50); %Basophils 0.9 % (0.0-1.0); %Eosinophils 2.1 % (0.0-10.0); %Lymphocytes 31.4 % (21.0-51.0); %Monocytes 10.6 % (0.0-10.0); Mean Corpuscular HGB CONC 32.8 g/dL (32.0-36.0); Mean Corpuscular Hemoglobin 25.7 pg (27.0-31.0); Mean Corpuscular Volume 78.3 fL (78.0-98.0); Mean Platelet Volume 7.7 fL (7.4-10.4); Platelet Count 179 thou/uL (130-400); RBC Distribution Width 14.4 % (11.5-14.5); White Blood Cell (WBC) Count 5.8 thou/uL (4.8-10.8)
[2019-09-20 06:01] LABS: ALT (SGPT) 7 U/L (8-55); AST (SGOT) 15 U/L (5-34); Albumin 3.4 g/dL (3.4-4.8); Alkaline Phosphatase 74 U/L (40-110); Anion Gap 17 mmol/L (10-20); BUN (Urea Nitrogen) 32 mg/dL (9.8-20.1); Bilirubin, Total 0.4 mg/dL (0.2-1.2); Calc. Creatinine Clearance 32 mL/min (70-130); Calcium 8.9 mg/dL (7.8-10.44); Carbon Dioxide 20 mmol/L (23-31); Chloride 104 mmol/L (98-107); Estimated GFR-MDRD 37; Globulin 3.7 g/dL (2.4-3.5); Glucose 93 mg/dL (83-110); Potassium 4.5 mmol/L (3.5-5.1); Protein, Total 7.1 g/dL (6.0-8.3); Sodium 136 mmol/L (136-145)
[2019-09-20] MEDS: Pantoprazole 40 MG VIAL IVP SCH (09:14)
[2019-09-20] MEDS: Potassium Chloride 20 MEQ TAB PO SCH (09:15)
[2019-09-20 15:58] VITALS: BP 119/56; TEMP 98.4
--- NOTE | 2019-09-23 09:47 | CON ---
DATE OF CONSULTATION: 09/14/2019 REASON FOR CONSULTATION: Anemia, dark stool recently. HISTORY OF PRESENT ILLNESS: Ms. Griffin is a very pleasant 83-year-old female hospitalized because of severe anemia. The patient's family is in the room along with the patient. The patient's daughter and son in the room. The patient was recently hospitalized with atrial fibrillation with fast ventricular rate. She was seen by Dr. Erik Conroy at that time. She was converted to sinus rhythm with Diltiazem drip and also subsequently was placed on Eliquis. During the last admission, she had mild anemia. The patient has not seen how the stool was. However, the patient's family tells me the stools are darker for a couple of days. She was found to have some weakness and also some dizziness and also found to have palpitation. She was brought to the ER by the family. She was hospitalized this morning. She was found to have anemia. She has been getting 1 unit of packed RBCs for the first time. The patient has had no stool today. The patient denies abdominal pain, nausea, vomiting, or hematemesis. No dysphagia or odynophagia. The patient admits not seeing how the stool color was, but the family tells me that the stool was darker for a couple of days. The patient has no prior history of any GI bleeding. No past history of peptic ulcer. Her bowel movements are fairly regular. There is no history of any weight loss, etc. MEDICAL ILLNESSES: 1. . 2. Diabetes mellitus. 3. Hypertension. 4. Hard of hearing. 5. Aortic stenosis and patient did not have surgery, but recently she agreed to have surgery. 6. Atrial fibrillation. The patient was placed . ALLERGIES: NONE. SOCIAL HISTORY: The patient does not smoke. FAMILY HISTORY: There is a strong family history of cancer, CVA, hypertension, diabetes. The patient's father and brothers had myocardial infarction. MEDICATIONS: Include; 1. . 2. Metformin. 3. Metoprolol. 4. . 5. Eliquis 5 mg p.o. twice a day. The last dose of Eliquis was last night. . REVIEW OF SYSTEMS: CONSTITUTIONAL: No history of weight loss. No fever. She has good exercise tolerance. HEAD: No chronic headache. She feels dizzy lately. EYES: No impaired vision. EARS: Hearing impairment, no pain or discharge. NOSE: No nose bleed. THROAT: LUNGS: No chronic coughing, no . CARDIOVASCULAR: No palpitation. No chest pain. No dyspnea. : MUSCULOSKELETAL: History of back pain and occasional arthralgias. NEUROPSYCHIATRY: Not known. PHYSICAL EXAMINATION: GENERAL: She appears comfortable, in no VITAL SIGNS: Afebrile. Her pulse is 60, blood pressure 107/50. HEENT: Conjunctivae are clear. NECK: Supple. No adenitis or thyromegaly noted. CARDIOVASCULAR: First and second heart sounds are heard. She had a grade 4/6 systolic murmur in the aortic area and left sternal border. LUNGS: Clear to auscultation. ABDOMEN: Soft. Abdomen is nondistended. Abdomen is nontender. No organomegaly. No masses. EXTREMITIES: LABORATORY DATA: Labs on admission shows anemia. WBC count of 7600, . During last admission on 08/28/2019, she was still anemic with a hemoglobin 10.4, hematocrit 32, it was dropping down to 8.8 and 26 on 08/31/2019, to 8.5 and 25.6 on 09/01/19. At the time of discharge, actually she was mildly anemic. Chemistry panel; sodium 136, potassium 4.5, chloride is 106, bicarb 21, BUN is 60, creatinine 1.42, glucose 93, calcium 8.7, troponin 0.036. Last admission, her lytes were normal. BUN was 37, creatinine 1.17. CLINICAL IMPRESSION: 1. An 83-year-old female with atrial fibrillation of recent onset and was placed on Eliquis during last admission. Since last admission, she was anemic. At the time of discharge, her blood count was actually about 8.5. The patient was found to have profound anemia. She has a history of dark stools. Based on the history and also the lab data, I believe she has upper GI bleeding. I am not sure if this is coming from upper GI tract or lower GI tract. 2. Atrial fibrillation of recent onset. 3. . 4. Hypertension. 5. Diabetes. 6. Aortic stenosis. . RECOMMENDATIONS: 1. Stool for occult blood. 2. Transfuse p.r.n. 3. Empiric PPI. 4. will have to wait 48 hours before the endoscopic studies can be done. The patient was on [employer]. . Job ID: [id number]
== END 2019-09-20 17:30 | disposition home or self-care (01) | DRG 378 ==
LOC: ERS 05:01 → 2SW 06:44 → OBSVTOIN 10:40
PROVIDERS: ADMIT Internal Medicine; ATTEND Emergency Medicine
PROC: 30233N1 Transfusion of Nonautologous Red Blood Cells into Peripheral Vein, Percutaneous Approach (ICD-10-PCS; 2019-09-14)
PROC: 0W3P8ZZ Control Bleeding in Gastrointestinal Tract, Via Natural or Artificial Opening Endoscopic (ICD-10-PCS; principal; 2019-09-16)
DX: K31.811 Angiodysplasia of stomach and duodenum with bleeding (principal); I13.0 Hypertensive heart and chronic kidney disease with heart failure and stage 1 through stage 4 chronic kidney disease, or unspecified chronic kidney disease; I35.0 Nonrheumatic aortic (valve) stenosis; D50.0 Iron deficiency anemia secondary to blood loss (chronic); E11.9 Type 2 diabetes mellitus without complications; I50.9 Heart failure, unspecified; I48.0 Paroxysmal atrial fibrillation; N18.3 Chronic kidney disease, stage 3 (moderate); Z79.01 Long term (current) use of anticoagulants
CPT/HCPCS: 36415; 36416; 36430; 71045; 80048; 80053; 82274; 84484; 85025; 86850; 86900; 86901; 93005; 93306; C9113; J2001; J2704; P9016

== ENCOUNTER 2019-10-30 03:08 | Emergency (ER) | payer MEDICARE, MEDICAID ==
[2019-10-30 03:51] LABS: #Eosinphils 0.1 thou/uL (0.0-0.7); #Lymphocytes 1.8 thou/uL (1.20-3.40); #Monocytes 0.3 thou/uL (0.11-0.59); #Neutrophils 2.9 thou/uL (1.40-6.50); %Basophils 0.7 % (0.0-1.0); %Eosinophils 2.8 % (0.0-10.0); %Lymphocytes 34.4 % (21.0-51.0); %Monocytes 6.2 % (0.0-10.0); %Neutrophils 55.9 % (42.0-75.0); Hemoglobin 8.2 g/dL (12.0-16.0); Mean Corpuscular Hemoglobin 24.2 pg (27.0-31.0); Mean Corpuscular Volume 75.5 fL (78.0-98.0); Mean Platelet Volume 7.7 fL (7.4-10.4); Platelet Count 213 thou/uL (130-400); White Blood Cell (WBC) Count 5.1 thou/uL (4.8-10.8)
[2019-10-30 04:05] LABS: ALT (SGPT) Less than 7 U/L (8-55); AST (SGOT) 12 U/L (5-34); Albumin 3.6 g/dL (3.4-4.8); Alkaline Phosphatase 87 U/L (40-110); Anion Gap 13 mmol/L (10-20); BUN (Urea Nitrogen) 15 mg/dL (9.8-20.1); Bilirubin, Total 0.3 mg/dL (0.2-1.2); Calc. Creatinine Clearance 0 mL/min (70-130); Carbon Dioxide 24 mmol/L (23-31); Chloride 104 mmol/L (98-107); Estimated GFR-MDRD 62; Glucose 99 mg/dL (83-110); Potassium 4.1 mmol/L (3.5-5.1); Protein, Total 7.6 g/dL (6.0-8.3); Sodium 137 mmol/L (136-145)
--- NOTE | 2019-10-30 07:33 | RAD ---
Exam: Chest one view HISTORY:Pain. Comparison: 09/06/2019 FINDINGS: Cardiac silhouette: Normal Aorta: Atherosclerosis of the aortic knob. Pulmonary vessels: Normal Costophrenic angles: Clear LUNGS: No masses or consolidation. Chronic lung parenchymal changes. Pneumothorax: None Osseous abnormalities: None IMPRESSION: No acute cardiopulmonary process. Atherosclerosis.
--- NOTE | 2019-11-02 12:04 | EKG ---
Test Reason : Blood Pressure : / mmHG Vent. Rate : 089 BPM Atrial Rate : 089 BPM P-R Int : 224 ms QRS Dur : 140 ms QT Int : 392 ms P-R-T Axes : 079 -54 059 degrees QTc Int : 476 ms Sinus rhythm with 1st degree A-V block Right bundle branch block Left anterior fascicular block Bifascicular block Voltage criteria for left ventricular hypertrophy Cannot rule out Septal infarct , age undetermined Abnormal ECG Confirmed by KAREN BIRD ([id number]), sports editor HUE MACIAS ([id number]) on 11/02/2019 12:04:36 PM Referred By: Confirmed By:KAREN BIRD
== END 2019-10-30 05:36 | disposition home or self-care (01) ==
LOC: ERS 03:08
DX: R00.2 Palpitations (principal); R07.81 Pleurodynia; R05 Cough; I48.91 Unspecified atrial fibrillation; E11.9 Type 2 diabetes mellitus without complications; I11.0 Hypertensive heart disease with heart failure; I50.9 Heart failure, unspecified; Z79.899 Other long term (current) drug therapy; Z79.82 Long term (current) use of aspirin
CPT/HCPCS: 36415; 71045; 80053; 83880; 84484; 85025; 93005

== ENCOUNTER 2020-07-23 06:50 | Outpatient (CLI) | payer MEDICARE, MEDICAID ==
--- NOTE | 2020-07-23 14:45 | RAD ---
PA AND LATERAL CHEST: Date: 07/23/2020 HISTORY: Preop. FINDINGS: Heart size appears slightly enlarged. Aorta is tortuous. Lungs are clear of infiltrates. There are ar thritic changes of the spine. IMPRESSION: Minimal cardiomegaly. No active intrathoracic disease. POS: ISABEL
[2020-07-23 15:25] LABS: PTT 27.6 sec (22.0-33.0); Prothrombin Time 10.9 sec (9.5-12.1)
[2020-07-23 15:41] LABS: Anion Gap 18 mmol/L (10-20); BUN (Urea Nitrogen) 19 mg/dL (9.8-20.1); Calc. Creatinine Clearance 0 mL/min (70-130); Calcium 9.1 mg/dL (7.8-10.44); Carbon Dioxide 23 mmol/L (23-31); Chloride 104 mmol/L (98-107); Estimated GFR-MDRD 49; Glucose 100 mg/dL (83-110); Potassium 3.9 mmol/L (3.5-5.1); Sodium 141 mmol/L (136-145)
[2020-07-23 16:43] LABS: ALT (SGPT) 12 U/L (8-55); AST (SGOT) 22 U/L (5-34); Albumin 4.1 g/dL (3.4-4.8); Alkaline Phosphatase 94 U/L (40-110); Bilirubin, Direct 0.1 mg/dL (0.1-0.3); Bilirubin, Total 0.3 mg/dL (0.2-1.2); Globulin 3.7 g/dL (2.4-3.5); Protein, Total 7.8 g/dL (6.0-8.3)
[2020-07-24 15:03] LABS: SARS-CoV-2 MS2 Positive; SARS-CoV-2 N Gene Negative; SARS-CoV-2 S Gene Negative; SARS-CoV-2 by NAA Not Detected (NotDetected); SARS-CoV-2 orf1ab Negative
--- NOTE | 2020-07-26 20:54 | EKG ---
Test Reason : Blood Pressure : / mmHG Vent. Rate : 081 BPM Atrial Rate : 081 BPM P-R Int : 244 ms QRS Dur : 146 ms QT Int : 424 ms P-R-T Axes : 079 -55 083 degrees QTc Int : 492 ms Sinus rhythm with 1st degree A-V block Right bundle branch block Left anterior fascicular block Bifascicular block Left ventricular hypertrophy with repolarization abnormality Cannot rule out Septal infarct , age undetermined Abnormal ECG No previous ECGs available Confirmed by Ba CHEATHAM ([id number]) on 07/26/2020 8:53:35 PM Referred By: MERLENE Confirmed By:Ba CHEATHAM
== END 2020-07-23 06:51 | disposition home or self-care (01) ==
LOC: LABBT 06:50
PROVIDERS: ATTEND Internal Medicine Cardiovascular Disease
DX: Z01.818 Encounter for other preprocedural examination (principal); Z20.828 Contact with and (suspected) exposure to other viral communicable diseases
CPT/HCPCS: 71046; 80053; 80076; 85610; 85730; 93005; U0003; 87635; 93010

== ENCOUNTER 2020-07-28 06:40 | Day surgery (SDC) | payer MEDICARE, MEDICAID ==
[2020-07-28 08:28] LABS: Hemoglobin 10.6 g/dL (12.0-16.0); Platelet Count 137 thou/uL (130-400)
[2020-07-28] MEDS ORDERED: Iopamidol 370 76% 100 ML VIAL ONE (08:59)
[2020-07-28] MEDS ORDERED: Acetaminophen 500 MG TAB ONE (12:03)
== END 2020-07-28 17:25 | disposition home or self-care (01) ==
LOC: CCL 06:40
PROVIDERS: ATTEND Internal Medicine Cardiovascular Disease
PROC: 4A023N8 Measurement of Cardiac Sampling and Pressure, Bilateral, Percutaneous Approach (ICD-10-PCS; principal; 2020-07-28)
PROC: B2111ZZ Fluoroscopy of Multiple Coronary Arteries using Low Osmolar Contrast (ICD-10-PCS; 2020-07-28)
DX: I35.0 Nonrheumatic aortic (valve) stenosis (principal); I48.0 Paroxysmal atrial fibrillation; E78.00 Pure hypercholesterolemia, unspecified; I10 Essential (primary) hypertension; E11.9 Type 2 diabetes mellitus without complications; E78.2 Mixed hyperlipidemia; Z79.84 Long term (current) use of oral hypoglycemic drugs; Z79.899 Other long term (current) drug therapy
CPT/HCPCS: 85014; 85018; 85049; 93456; J1644; Q9967

== ENCOUNTER 2020-11-28 00:21 | Inpatient (IN) | payer MEDICARE, OTHER ==
[2020-11-28 01:33] LABS: #Eosinphils 0.1 thou/uL (0.0-0.7); #Lymphocytes 2.6 thou/uL (1.20-3.40); #Monocytes 0.5 thou/uL (0.11-0.59); #Neutrophils 4.6 thou/uL (1.40-6.50); %Basophils 0.6 % (0.0-1.0); %Eosinophils 1.4 % (0.0-10.0); %Monocytes 6.7 % (0.0-10.0); %Neutrophils 58.3 % (42.0-75.0); Hemoglobin 8.8 g/dL (12.0-16.0); Mean Corpuscular HGB CONC 34.1 g/dL (32.0-36.0); Mean Corpuscular Hemoglobin 28.4 pg (27.0-31.0); Mean Corpuscular Volume 83.2 fL (78.0-98.0); Mean Platelet Volume 8.1 fL (7.4-10.4); Platelet Count 158 thou/uL (130-400); RBC Distribution Width 14.2 % (11.5-14.5); Red Blood Cell (RBC) Count 3.11 mill/uL (4.20-5.40)
[2020-11-28 01:34] LABS: Bilirubin Negative (Negative); Blood, Urine Negative (Negative); Clarity Clear (Clear); Glucose, Urine (Dipstick) Normal (Negative); Ketone, Urine Negative (Negative); Leukocyte 500 Leu/uL (Negative); Nitrite Negative (Negative); Protein, Urine (Dipstick) Negative (Neg-Trace); RBC/HPF 0-3 HPF (0-3); Specific Gravity, Urine 1.012 (1.002-1.036); Squamous Epithelial 0-3 HPF (0-3); Urobilinogen Normal mg/dL (Less than 2)
[2020-11-28 01:36] LABS: Bacteria/HPF 1+ HPF (None Seen)
[2020-11-28 01:52] LABS: Anion Gap 17 mmol/L (10-20); BUN (Urea Nitrogen) 36 mg/dL (9.8-20.1); Calc. Creatinine Clearance 0 mL/min (70-130); Carbon Dioxide 23 mmol/L (23-31); Chloride 103 mmol/L (98-107); Potassium 3.6 mmol/L (3.5-5.1); Sodium 139 mmol/L (136-145)
[2020-11-28 01:53] LABS: ALT (SGPT) 9 U/L (8-55); AST (SGOT) 16 U/L (5-34); Albumin 3.8 g/dL (3.4-4.8); Alkaline Phosphatase 111 U/L (40-110); Bilirubin, Total 0.2 mg/dL (0.2-1.2); Calcium 8.8 mg/dL (7.8-10.44); Globulin 3.8 g/dL (2.4-3.5); Glucose 112 mg/dL (83-110); Lipase 65 U/L (8-78); Protein, Total 7.6 g/dL (5.8-8.1)
[2020-11-28 02:13] LABS: CKMB 2.1 ng/mL (0-6.6)
[2020-11-28] MEDS ORDERED: cefTRIAXone\\ROCEPHIN 1 GM VIAL ONE (02:32)
[2020-11-28] MEDS ORDERED: Aspirin Chewable 81 MG TAB ONE (02:32)
[2020-11-28] MEDS ORDERED: Ondansetron PF 4 MG/2 ML Vial IVP PRN (03:13)
[2020-11-28] MEDS ORDERED: Ondansetron ODT 4 MG TAB PO PRN (03:13)
[2020-11-28] MEDS ORDERED: Senokot S 8.6-50 MG TAB PO PRN (03:13)
[2020-11-28] MEDS ORDERED: Calcium Carbonate 500 MG ChewTAB PO PRN (03:13)
[2020-11-28] MEDS ORDERED: Acetaminophen 325 MG TAB PO PRN (03:16)
[2020-11-28] MEDS ORDERED: Dextrose 5% in Water 1,000 ML IV PRN (03:17)
[2020-11-28] MEDS ORDERED: HumaLOG 300 UNITS/3 ML VIAL SC PRN ×2 (03:17)
[2020-11-28] MEDS ORDERED: Dextrose 50% Abboject 50 ML SYRINGE SLOW IVP PRN (03:17)
[2020-11-28] MEDS ORDERED: Acetaminophen 500 MG TAB PO SCH (03:30)
[2020-11-28 06:15] LABS: Cardiac Risk 2.9 (Less than 4.5); Magnesium 1.9 mg/dL (1.6-2.6)
[2020-11-28 06:20] LABS: Troponin I 0.054 ng/mL (< 0.028)
[2020-11-28 07:26] VITALS: BMI 28.3
[2020-11-28] MEDS: Apixaban 2.5 MG TAB PO SCH ×2 (09:08→20:34)
[2020-11-28 09:34] LABS: SARS-CoV-2 PCR by NAA Not Detected (NotDetected)
[2020-11-28 09:44] LABS: Troponin I 0.061 ng/mL (< 0.028)
[2020-11-28] MEDS: Atorvastatin Calcium 10 MG TAB PO SCH (20:34)
[2020-11-29] MEDS: cefTRIAXone\\ROCEPHIN 1 GM in Sodium Chloride 0.9% 100 ML IVPB SCH (03:23)
[2020-11-29] MEDS: Apixaban 2.5 MG TAB PO SCH ×2 (08:51→20:31)
[2020-11-29] MEDS: Ferrous Sulfate 325 MG TAB PO SCH (08:52)
[2020-11-29] MEDS ORDERED: [UNRECOGNIZED DRUG - OTHER] PO SCH (09:00)
[2020-11-29] MEDS ORDERED: MULTIVIT STRESS FORMULA PO SCH (09:00)
[2020-11-29] MEDS ORDERED: ZINC PO SCH (09:00)
[2020-11-29] MEDS: Stress 600 With Zinc 1 TAB PO SCH (11:56)
[2020-11-29] MEDS: Atorvastatin Calcium 10 MG TAB PO SCH (20:31)
[2020-11-30] MEDS: cefTRIAXone\\ROCEPHIN 1 GM in Sodium Chloride 0.9% 100 ML IVPB SCH (01:22)
[2020-11-30 05:29] LABS: #Eosinphils 0.2 thou/uL (0.0-0.7); #Lymphocytes 2.5 thou/uL (1.20-3.40); #Monocytes 0.3 thou/uL (0.11-0.59); #Neutrophils 3.9 thou/uL (1.40-6.50); %Basophils 0.6 % (0.0-1.0); %Eosinophils 2.4 % (0.0-10.0); %Lymphocytes 36.1 % (21.0-51.0); %Monocytes 4.9 % (0.0-10.0); %Neutrophils 55.9 % (42.0-75.0); Hemoglobin 7.6 g/dL (12.0-16.0); Mean Corpuscular HGB CONC 32.3 g/dL (32.0-36.0); Mean Corpuscular Hemoglobin 26.8 pg (27.0-31.0); Mean Platelet Volume 7.5 fL (7.4-10.4); Platelet Count 146 thou/uL (130-400); RBC Distribution Width 14.2 % (11.5-14.5); Red Blood Cell (RBC) Count 2.82 mill/uL (4.20-5.40)
[2020-11-30 05:53] LABS: Anion Gap 11 mmol/L (10-20); BUN (Urea Nitrogen) 19 mg/dL (9.8-20.1); Calc. Creatinine Clearance 44 mL/min (70-130); Calcium 8.6 mg/dL (7.8-10.44); Carbon Dioxide 26 mmol/L (23-31); Chloride 107 mmol/L (98-107); Glucose 95 mg/dL (83-110); Sodium 140 mmol/L (136-145)
[2020-11-30] MEDS: Ferrous Sulfate 325 MG TAB PO SCH (08:23)
[2020-11-30] MEDS: Stress 600 With Zinc 1 TAB PO SCH (09:30)
[2020-11-30] MEDS: Polyethylene Glycol 3350 17 GM Packet PO SCH (09:30)
[2020-11-30] MEDS: Apixaban 2.5 MG TAB PO SCH ×2 (09:30→19:58)
[2020-11-30] MEDS: Atorvastatin Calcium 10 MG TAB PO SCH (19:58)
[2020-12-01] MEDS: cefTRIAXone\\ROCEPHIN 1 GM in Sodium Chloride 0.9% 100 ML IVPB SCH (01:22)
[2020-12-01] MEDS: Apixaban 2.5 MG TAB PO SCH (09:33)
[2020-12-01] MEDS: Ferrous Sulfate 325 MG TAB PO SCH (09:33)
[2020-12-01] MEDS: Polyethylene Glycol 3350 17 GM Packet PO SCH (09:34)
[2020-12-01] MEDS: Stress 600 With Zinc 1 TAB PO SCH (11:14)
[2020-12-01 11:52] VITALS: BP 124/77; TEMP 98.1
== END 2020-12-01 13:15 | disposition home or self-care (01) | DRG 683 ==
LOC: ERS 00:21 → 2NO 03:13 → SJJU 11-29 19:41
PROVIDERS: ADMIT Surgery; ATTEND Hospitalist
DX: N17.9 Acute kidney failure, unspecified (principal); N39.0 Urinary tract infection, site not specified; I50.32 Chronic diastolic (congestive) heart failure; I13.0 Hypertensive heart and chronic kidney disease with heart failure and stage 1 through stage 4 chronic kidney disease, or unspecified chronic kidney disease; I48.0 Paroxysmal atrial fibrillation; E78.5 Hyperlipidemia, unspecified; B96.20 Unspecified Escherichia coli [E. coli] as the cause of diseases classified elsewhere; I35.0 Nonrheumatic aortic (valve) stenosis; D50.9 Iron deficiency anemia, unspecified; R77.8 Other specified abnormalities of plasma proteins; M25.561 Pain in right knee; G89.29 Other chronic pain; E11.22 Type 2 diabetes mellitus with diabetic chronic kidney disease; Z79.01 Long term (current) use of anticoagulants; Z79.84 Long term (current) use of oral hypoglycemic drugs; Z79.899 Other long term (current) drug therapy
CPT/HCPCS: 36415; 36416; 71045; 76770; 80048; 80053; 80061; 81003; 81015; 82553; 83690; 83735; 83880; 84443; 84484; 85025; 87077; 87086; 87186; 87635; 93005; 96374; J0696; J3490; U0003; U0005

== ENCOUNTER 2021-06-07 20:24 | Inpatient (IN) | payer MEDICARE, MEDICAID ==
[2021-06-07 22:40] LABS: Bilirubin Negative (Negative); Blood, Urine Negative (Negative); Clarity Clear (Clear); Glucose, Urine (Dipstick) Normal (Negative); Ketone, Urine Negative (Negative); Leukocyte Negative Leu/uL (Negative); Nitrite Negative (Negative); Protein, Urine (Dipstick) Negative (Neg-Trace); Specific Gravity, Urine 1.006 (1.002-1.036); Urobilinogen Normal mg/dL (Less than 2); pH, Urine 6.5 (5.0-9.0)
[2021-06-07 22:50] LABS: ALT (SGPT) 23 U/L (8-55); AST (SGOT) 38 U/L (5-34); Albumin 3.1 g/dL (3.4-4.8); Alkaline Phosphatase 82 U/L (40-110); Anion Gap 18 mmol/L (10-20); BUN (Urea Nitrogen) 17 mg/dL (9.8-20.1); Bilirubin, Total 3.3 mg/dL (0.2-1.2); Calc. Creatinine Clearance 0 mL/min (70-130); Calcium 9.2 mg/dL (7.8-10.44); Carbon Dioxide 24 mmol/L (23-31); Chloride 97 mmol/L (98-107); Globulin 3.6 g/dL (2.4-3.5); Glucose 88 mg/dL (83-110); Lipase 21 U/L (8-78); Magnesium 1.3 mg/dL (1.6-2.6); Potassium 4.2 mmol/L (3.5-5.1); Protein, Total 6.7 g/dL (5.8-8.1); Sodium 135 mmol/L (136-145)
[2021-06-07 23:11] LABS: CKMB 3.7 ng/mL (0-6.6)
[2021-06-07 23:16] LABS: #Basophils 0.1 thou/uL (0.0-0.2); #Lymphocytes 2.1 thou/uL (1.20-3.40); #Monocytes 0.5 thou/uL (0.11-0.59); #Neutrophils 2.1 thou/uL (1.40-6.50); %Basophils 1.6 % (0.0-1.0); %Eosinophils 0.7 % (0.0-10.0); %Lymphocytes 43.4 % (21.0-51.0); %Monocytes 11.3 % (0.0-10.0); Burr Cells MODERATE= 6-15 cells (100X) (0-1/hpf); Hemoglobin 15.2 g/dL (12.0-16.0); Hypochromia SLIGHT = 6-15 cells (100X) (0-5/hpf); MDiff Complete? YES; Mean Corpuscular HGB CONC 30.7 g/dL (32.0-36.0); Mean Corpuscular Hemoglobin 26.4 pg (27.0-31.0); Mean Corpuscular Volume 86.1 fL (78.0-98.0); Mean Platelet Volume 9.9 fL (7.4-10.4); Platelet Count 89 thou/uL (130-400); Platelet Morphology Comment Appears Decreased; RBC Distribution Width 16.6 % (11.5-14.5); Red Blood Cell (RBC) Count 5.78 mill/uL (4.20-5.40); White Blood Cell (WBC) Count 4.8 thou/uL (4.8-10.8)
[2021-06-08] MEDS ORDERED: Magnesium 2 GM/50 ML BAG (IN WATER) ONE (01:32)
[2021-06-08] MEDS ORDERED: Ondansetron ODT 4 MG TAB SL PRN (03:45)
[2021-06-08] MEDS ORDERED: Acetaminophen 325 MG TAB PO PRN ×2 (03:45→09:29)
[2021-06-08] MEDS ORDERED: Ondansetron PF 4 MG/2 ML Vial IVP PRN ×2 (03:45→09:29)
[2021-06-08] MEDS ORDERED: Sodium Chloride 0.9% 1,000 ML IV SCH (03:45)
[2021-06-08 06:15] LABS: SARS-CoV-2 NAA Rapid Test Not Detected (NotDetected)
[2021-06-08 08:25] LABS: Troponin I 0.053 ng/mL (< 0.028)
[2021-06-08 09:49] LABS: #Lymphocytes 1.6 thou/uL (1.20-3.40); #Monocytes 0.6 thou/uL (0.11-0.59); #Neutrophils 2.3 thou/uL (1.40-6.50); %Lymphocytes 35.5 % (21.0-51.0); %Monocytes 13.2 % (0.0-10.0); %Neutrophils 49.3 % (42.0-75.0); Mean Corpuscular HGB CONC 31.3 g/dL (32.0-36.0); Mean Corpuscular Hemoglobin 27.2 pg (27.0-31.0); Mean Corpuscular Volume 86.8 fL (78.0-98.0); Mean Platelet Volume 10.7 fL (7.4-10.4); Platelet Count 86 thou/uL (130-400); RBC Distribution Width 16.3 % (11.5-14.5); Red Blood Cell (RBC) Count 5.88 mill/uL (4.20-5.40); White Blood Cell (WBC) Count 4.6 thou/uL (4.8-10.8)
[2021-06-08 10:06] LABS: Anion Gap 19 mmol/L (10-20); BUN (Urea Nitrogen) 18 mg/dL (9.8-20.1); Calc. Creatinine Clearance 16 mL/min (70-130); Calcium 9.1 mg/dL (7.8-10.44); Carbon Dioxide 25 mmol/L (23-31); Chloride 97 mmol/L (98-107); Glucose 74 mg/dL (83-110); Magnesium 1.8 mg/dL (1.6-2.6); Sodium 137 mmol/L (136-145)
[2021-06-08 10:28] LABS: Troponin I 0.046 ng/mL (< 0.028)
[2021-06-08 11:23] LABS: ALT (SGPT) 21 U/L (8-55); AST (SGOT) 33 U/L (5-34); Albumin 2.7 g/dL (3.4-4.8); Alkaline Phosphatase 80 U/L (40-110); Bilirubin, Direct 1.7 mg/dL (0.1-0.3); Protein, Total 6.4 g/dL (5.8-8.1)
[2021-06-08] MEDS ORDERED: Furosemide 20 MG/2 ML VIAL SLOW IVP SCH (19:00)
[2021-06-08 19:26] LABS: Troponin I 0.032 ng/mL (< 0.028)
[2021-06-09] MEDS: Furosemide 20 MG/2 ML VIAL SLOW IVP SCH ×2 (05:37→15:00)
[2021-06-09 14:00] LABS: Hemoglobin 16.8 g/dL (12.0-16.0); Mean Corpuscular HGB CONC 31.2 g/dL (32.0-36.0); Mean Corpuscular Hemoglobin 27.1 pg (27.0-31.0); Mean Corpuscular Volume 86.9 fL (78.0-98.0); Mean Platelet Volume 10.3 fL (7.4-10.4); Platelet Count 106 thou/uL (130-400); RBC Distribution Width 16.2 % (11.5-14.5); Red Blood Cell (RBC) Count 6.19 mill/uL (4.20-5.40)
[2021-06-09 14:12] LABS: Anisocytosis SLIGHT = 6-15 cells (100X) (0-5/hpf); Burr Cells SLIGHT = 2-5 cells (100X) (0-1/hpf); Eosinophils 2 % (0-10); Lymphocytes 31 % (21-51); MDiff Complete? YES; Monocytes 4 % (0-10); Neutrophil 62 % (42-75); Ovalocytes SLIGHT = 2-5 cells (100X) (0-1/hpf); Platelet Morphology Comment Appears Decreased; Polychromasia SLIGHT = 2-3 cells (100X) (0-2/hpf); Reactive Lymphocytes 1 % (0-10); White Blood Cell (WBC) Count 4.2 thou/uL (4.8-10.8)
[2021-06-09 14:18] LABS: ALT (SGPT) 24 U/L (8-55); AST (SGOT) 36 U/L (5-34); Albumin 3.1 g/dL (3.4-4.8); Alkaline Phosphatase 92 U/L (40-110); Anion Gap 16 mmol/L (10-20); BUN (Urea Nitrogen) 20 mg/dL (9.8-20.1); Calc. Creatinine Clearance 17 mL/min (70-130); Calcium 9.4 mg/dL (7.8-10.44); Carbon Dioxide 28 mmol/L (23-31); Chloride 98 mmol/L (98-107); Globulin 3.8 g/dL (2.4-3.5); Glucose 123 mg/dL (83-110); Magnesium 1.7 mg/dL (1.6-2.6); Potassium 3.3 mmol/L (3.5-5.1); Protein, Total 6.9 g/dL (5.8-8.1); Sodium 139 mmol/L (136-145)
[2021-06-09] MEDS ORDERED: Potassium Chloride 20 MEQ TAB PO SCH (14:35)
[2021-06-10 04:53] LABS: #Eosinphils 0.1 thou/uL (0.0-0.7); #Lymphocytes 1.8 thou/uL (1.20-3.40); #Monocytes 0.4 thou/uL (0.11-0.59); #Neutrophils 2.3 thou/uL (1.40-6.50); %Basophils 0.6 % (0.0-1.0); %Lymphocytes 38.4 % (21.0-51.0); %Monocytes 9.2 % (0.0-10.0); %Neutrophils 49.8 % (42.0-75.0); Hemoglobin 16.5 g/dL (12.0-16.0); Mean Corpuscular HGB CONC 31.9 g/dL (32.0-36.0); Mean Corpuscular Hemoglobin 27.9 pg (27.0-31.0); Mean Corpuscular Volume 87.7 fL (78.0-98.0); Mean Platelet Volume 10.7 fL (7.4-10.4); Platelet Count 97 thou/uL (130-400); RBC Distribution Width 16.6 % (11.5-14.5); White Blood Cell (WBC) Count 4.7 thou/uL (4.8-10.8)
[2021-06-10 05:05] LABS: INR-International Normal Ratio 1.4; PTT 32.6 sec (22.9-36.1); Prothrombin Time 17.1 sec (12.0-14.7)
[2021-06-10 05:06] LABS: Anion Gap 16 mmol/L (10-20); BUN (Urea Nitrogen) 19 mg/dL (9.8-20.1); Calc. Creatinine Clearance 18 mL/min (70-130); Calcium 9.1 mg/dL (7.8-10.44); Carbon Dioxide 30 mmol/L (23-31); Chloride 99 mmol/L (98-107); Glucose 81 mg/dL (83-110); Potassium 3.8 mmol/L (3.5-5.1); Sodium 141 mmol/L (136-145)
[2021-06-10 05:07] LABS: Magnesium 1.6 mg/dL (1.6-2.6)
[2021-06-10] MEDS: Furosemide 20 MG/2 ML VIAL SLOW IVP SCH ×2 (05:31→14:41)
[2021-06-10] MEDS: Multivitamin W/ Minerals 1 TAB PO SCH (08:47)
[2021-06-10] MEDS ORDERED: Ferrous Sulfate 325 MG TAB PO SCH (09:00)
[2021-06-10 09:50] LABS: Bilirubin, Direct 2.1 mg/dL (0.1-0.3); Bilirubin, Total 3.4 mg/dL (0.2-1.2)
[2021-06-10] MEDS: Polyethylene Glycol 3350 17 GM Packet PO SCH (20:17)
[2021-06-11] MEDS: Furosemide 20 MG/2 ML VIAL SLOW IVP SCH ×2 (05:22→15:53)
[2021-06-11] MEDS: Multivitamin W/ Minerals 1 TAB PO SCH (08:58)
[2021-06-11 12:41] LABS: Band 1 % (5-11); Burr Cells SLIGHT = 2-5 cells (100X) (0-1/hpf); Eosinophils 1 % (0-10); Lymphocytes 42 % (21-51); MDiff Complete? YES; Mean Corpuscular HGB CONC 31.2 g/dL (32.0-36.0); Mean Corpuscular Hemoglobin 28.1 pg (27.0-31.0); Mean Platelet Volume 11.9 fL (7.4-10.4); Monocytes 7 % (0-10); Neutrophil 49 % (42-75); Platelet Count 64 thou/uL (130-400); Polychromasia SLIGHT = 2-3 cells (100X) (0-2/hpf); RBC Distribution Width 16.9 % (11.5-14.5); Red Blood Cell (RBC) Count 6.05 mill/uL (4.20-5.40); White Blood Cell (WBC) Count 4.8 thou/uL (4.8-10.8)
[2021-06-11 15:45] LABS: Magnesium 1.3 mg/dL (1.6-2.6)
[2021-06-11 15:48] LABS: ALT (SGPT) 25 U/L (8-55); AST (SGOT) 35 U/L (5-34); Albumin 3.1 g/dL (3.4-4.8); Alkaline Phosphatase 88 U/L (40-110); Anion Gap 19 mmol/L (10-20); BUN (Urea Nitrogen) 19 mg/dL (9.8-20.1); Bilirubin, Total 3.2 mg/dL (0.2-1.2); Calc. Creatinine Clearance 22 mL/min (70-130); Calcium 8.9 mg/dL (7.8-10.44); Carbon Dioxide 29 mmol/L (23-31); Chloride 97 mmol/L (98-107); Globulin 3.7 g/dL (2.4-3.5); Glucose 95 mg/dL (83-110); Potassium 3.9 mmol/L (3.5-5.1); Protein, Total 6.8 g/dL (5.8-8.1); Sodium 141 mmol/L (136-145)
[2021-06-11] MEDS: Polyethylene Glycol 3350 17 GM Packet PO SCH (20:22)
[2021-06-12 05:06] LABS: #Eosinphils 0.1 thou/uL (0.0-0.7); #Monocytes 0.4 thou/uL (0.11-0.59); %Basophils 0.8 % (0.0-1.0); %Lymphocytes 43.5 % (21.0-51.0); %Monocytes 9.6 % (0.0-10.0); %Neutrophils 44.1 % (42.0-75.0); Hemoglobin 15.8 g/dL (12.0-16.0); Mean Corpuscular HGB CONC 30.6 g/dL (32.0-36.0); Mean Corpuscular Hemoglobin 27.3 pg (27.0-31.0); Mean Corpuscular Volume 89.2 fL (78.0-98.0); Mean Platelet Volume 10.2 fL (7.4-10.4); Platelet Count 105 thou/uL (130-400); RBC Distribution Width 16.2 % (11.5-14.5); White Blood Cell (WBC) Count 4.6 thou/uL (4.8-10.8)
[2021-06-12 05:10] LABS: ALT (SGPT) 24 U/L (8-55); AST (SGOT) 33 U/L (5-34); Albumin 2.9 g/dL (3.4-4.8); Alkaline Phosphatase 79 U/L (40-110); Anion Gap 17 mmol/L (10-20); BUN (Urea Nitrogen) 19 mg/dL (9.8-20.1); Calc. Creatinine Clearance 24 mL/min (70-130); Calcium 9.1 mg/dL (7.8-10.44); Carbon Dioxide 34 mmol/L (23-31); Chloride 97 mmol/L (98-107); Globulin 3.8 g/dL (2.4-3.5); Glucose 78 mg/dL (83-110); Potassium 3.7 mmol/L (3.5-5.1); Protein, Total 6.7 g/dL (5.8-8.1); Sodium 144 mmol/L (136-145)
[2021-06-12] MEDS: Furosemide 20 MG/2 ML VIAL SLOW IVP SCH ×2 (05:34→15:03)
[2021-06-12] MEDS: Multivitamin W/ Minerals 1 TAB PO SCH (08:50)
[2021-06-12] MEDS: Polyethylene Glycol 3350 17 GM Packet PO SCH (20:17)
[2021-06-13] MEDS: Furosemide 20 MG/2 ML VIAL SLOW IVP SCH ×2 (05:55→15:14)
[2021-06-13] MEDS: Multivitamin W/ Minerals 1 TAB PO SCH (08:52)
[2021-06-13 14:11] LABS: #Basophils 0.1 thou/uL (0.0-0.2); #Eosinphils 0.1 thou/uL (0.0-0.7); #Monocytes 0.5 thou/uL (0.11-0.59); #Neutrophils 2.3 thou/uL (1.40-6.50); %Basophils 1.4 % (0.0-1.0); %Eosinophils 1.8 % (0.0-10.0); %Neutrophils 45.6 % (42.0-75.0); Hemoglobin 16.3 g/dL (12.0-16.0); Mean Corpuscular HGB CONC 30.6 g/dL (32.0-36.0); Mean Corpuscular Hemoglobin 27.3 pg (27.0-31.0); Mean Corpuscular Volume 89.1 fL (78.0-98.0); Mean Platelet Volume 9.7 fL (7.4-10.4); Platelet Count 126 thou/uL (130-400); RBC Distribution Width 15.9 % (11.5-14.5); Red Blood Cell (RBC) Count 5.99 mill/uL (4.20-5.40)
[2021-06-13 14:33] LABS: ALT (SGPT) 26 U/L (8-55); AST (SGOT) 32 U/L (5-34); Albumin 3.1 g/dL (3.4-4.8); Alkaline Phosphatase 86 U/L (40-110); Anion Gap 16 mmol/L (10-20); BUN (Urea Nitrogen) 19 mg/dL (9.8-20.1); Bilirubin, Total 2.8 mg/dL (0.2-1.2); Calc. Creatinine Clearance 25 mL/min (70-130); Calcium 8.9 mg/dL (7.8-10.44); Carbon Dioxide 36 mmol/L (23-31); Chloride 95 mmol/L (98-107); Glucose 98 mg/dL (83-110); Potassium 3.6 mmol/L (3.5-5.1); Protein, Total 7.1 g/dL (5.8-8.1); Sodium 143 mmol/L (136-145)
[2021-06-13] MEDS: Polyethylene Glycol 3350 17 GM Packet PO SCH (19:59)
[2021-06-14 05:07] LABS: #Eosinphils 0.1 thou/uL (0.0-0.7); #Lymphocytes 2.1 thou/uL (1.20-3.40); #Monocytes 0.4 thou/uL (0.11-0.59); #Neutrophils 1.9 thou/uL (1.40-6.50); %Basophils 0.9 % (0.0-1.0); %Eosinophils 2.6 % (0.0-10.0); %Lymphocytes 46.1 % (21.0-51.0); %Monocytes 9.2 % (0.0-10.0); %Neutrophils 41.2 % (42.0-75.0); Hemoglobin 15.9 g/dL (12.0-16.0); Mean Corpuscular HGB CONC 30.4 g/dL (32.0-36.0); Mean Corpuscular Volume 89.1 fL (78.0-98.0); Platelet Count 101 thou/uL (130-400); RBC Distribution Width 15.9 % (11.5-14.5); Red Blood Cell (RBC) Count 5.87 mill/uL (4.20-5.40); White Blood Cell (WBC) Count 4.6 thou/uL (4.8-10.8)
[2021-06-14 05:14] LABS: ALT (SGPT) 24 U/L (8-55); AST (SGOT) 31 U/L (5-34); Albumin 2.7 g/dL (3.4-4.8); Alkaline Phosphatase 79 U/L (40-110); Anion Gap 17 mmol/L (10-20); BUN (Urea Nitrogen) 22 mg/dL (9.8-20.1); Bilirubin, Total 2.2 mg/dL (0.2-1.2); Calc. Creatinine Clearance 28 mL/min (70-130); Carbon Dioxide 29 mmol/L (23-31); Chloride 96 mmol/L (98-107); Globulin 3.7 g/dL (2.4-3.5); Glucose 75 mg/dL (83-110); Potassium 3.5 mmol/L (3.5-5.1); Protein, Total 6.4 g/dL (5.8-8.1); Sodium 138 mmol/L (136-145)
[2021-06-14] MEDS: Furosemide 20 MG/2 ML VIAL SLOW IVP SCH (06:00)
[2021-06-14] MEDS: Multivitamin W/ Minerals 1 TAB PO SCH (08:40)
[2021-06-14 09:27] VITALS: BMI 24.1
[2021-06-14 19:06] LABS: SARS-CoV-2 PCR by NAA Not Detected (NotDetected)
[2021-06-14] MEDS: Polyethylene Glycol 3350 17 GM Packet PO SCH (21:44)
[2021-06-15 08:50] LABS: #Basophils 0.1 thou/uL (0.0-0.2); #Eosinphils 0.1 thou/uL (0.0-0.7); #Lymphocytes 2.4 thou/uL (1.20-3.40); #Monocytes 0.3 thou/uL (0.11-0.59); #Neutrophils 2.1 thou/uL (1.40-6.50); %Basophils 1.3 % (0.0-1.0); %Eosinophils 1.9 % (0.0-10.0); %Lymphocytes 47.9 % (21.0-51.0); %Monocytes 6.7 % (0.0-10.0); %Neutrophils 42.2 % (42.0-75.0); Hemoglobin 17.1 g/dL (12.0-16.0); Mean Corpuscular HGB CONC 30.1 g/dL (32.0-36.0); Mean Corpuscular Hemoglobin 26.3 pg (27.0-31.0); Mean Corpuscular Volume 87.5 fL (78.0-98.0); Mean Platelet Volume 9.6 fL (7.4-10.4); Platelet Count 139 thou/uL (130-400); RBC Distribution Width 15.8 % (11.5-14.5); Red Blood Cell (RBC) Count 6.48 mill/uL (4.20-5.40); White Blood Cell (WBC) Count 5.1 thou/uL (4.8-10.8)
[2021-06-15 09:01] LABS: ALT (SGPT) 25 U/L (8-55); AST (SGOT) 34 U/L (5-34); Albumin 3.1 g/dL (3.4-4.8); Alkaline Phosphatase 80 U/L (40-110); Anion Gap 16 mmol/L (10-20); BUN (Urea Nitrogen) 20 mg/dL (9.8-20.1); Bilirubin, Total 2.7 mg/dL (0.2-1.2); Calc. Creatinine Clearance 26 mL/min (70-130); Calcium 9.1 mg/dL (7.8-10.44); Carbon Dioxide 32 mmol/L (23-31); Chloride 92 mmol/L (98-107); Globulin 4.2 g/dL (2.4-3.5); Glucose 88 mg/dL (83-110); Potassium 3.7 mmol/L (3.5-5.1); Protein, Total 7.3 g/dL (5.8-8.1); Sodium 136 mmol/L (136-145)
[2021-06-15] MEDS: Multivitamin W/ Minerals 1 TAB PO SCH (09:47)
[2021-06-15 11:31] LABS: RBC Morphology Normal
[2021-06-15] MEDS ORDERED: Sodium Chloride 0.9% 250 ML 250 ML IVPB SCH (16:20)
[2021-06-15] MEDS: Polyethylene Glycol 3350 17 GM Packet PO SCH (21:18)
[2021-06-16 05:29] LABS: #Eosinphils 0.1 thou/uL (0.0-0.7); #Lymphocytes 2.3 thou/uL (1.20-3.40); #Monocytes 0.4 thou/uL (0.11-0.59); #Neutrophils 2.1 thou/uL (1.40-6.50); %Basophils 0.8 % (0.0-1.0); %Eosinophils 2.4 % (0.0-10.0); %Lymphocytes 46.9 % (21.0-51.0); %Monocytes 7.6 % (0.0-10.0); %Neutrophils 42.3 % (42.0-75.0); Hemoglobin 15.2 g/dL (12.0-16.0); Mean Corpuscular HGB CONC 30.5 g/dL (32.0-36.0); Mean Corpuscular Hemoglobin 26.5 pg (27.0-31.0); Mean Platelet Volume 9.7 fL (7.4-10.4); Platelet Count 128 thou/uL (130-400); RBC Distribution Width 15.6 % (11.5-14.5); Red Blood Cell (RBC) Count 5.73 mill/uL (4.20-5.40); White Blood Cell (WBC) Count 4.9 thou/uL (4.8-10.8)
[2021-06-16 05:57] LABS: ALT (SGPT) 24 U/L (8-55); AST (SGOT) 36 U/L (5-34); Albumin 2.7 g/dL (3.4-4.8); Alkaline Phosphatase 74 U/L (40-110); Anion Gap 12 mmol/L (10-20); BUN (Urea Nitrogen) 19 mg/dL (9.8-20.1); Bilirubin, Total 2.1 mg/dL (0.2-1.2); Calc. Creatinine Clearance 31 mL/min (70-130); Calcium 8.7 mg/dL (7.8-10.44); Carbon Dioxide 31 mmol/L (23-31); Chloride 97 mmol/L (98-107); Globulin 3.7 g/dL (2.4-3.5); Glucose 84 mg/dL (83-110); Potassium 3.4 mmol/L (3.5-5.1); Protein, Total 6.4 g/dL (5.8-8.1); Sodium 137 mmol/L (136-145)
[2021-06-16 08:39] VITALS: BP 117/69; TEMP 98.4
[2021-06-16] MEDS: Multivitamin W/ Minerals 1 TAB PO SCH (08:40)
== END 2021-06-16 10:10 | disposition short-term general hospital, planned readmission (82) | DRG 280 ==
LOC: ERS 20:24 → 2NO 06-08 00:28 → ERHOLD 06-08 00:33 → PACU-TCU 06-08 12:10 → 2NO 06-08 17:53 → OBSVTOIN 06-09 09:53
PROVIDERS: ADMIT Internal Medicine; ATTEND Internal Medicine
DX: I13.0 Hypertensive heart and chronic kidney disease with heart failure and stage 1 through stage 4 chronic kidney disease, or unspecified chronic kidney disease (principal); I50.43 Acute on chronic combined systolic (congestive) and diastolic (congestive) heart failure; I21.A1 Myocardial infarction type 2; G93.41 Metabolic encephalopathy; N17.9 Acute kidney failure, unspecified; E44.0 Moderate protein-calorie malnutrition; Z20.822 Contact with and (suspected) exposure to COVID-19; R11.2 Nausea with vomiting, unspecified; E83.42 Hypomagnesemia; D75.1 Secondary polycythemia; E11.22 Type 2 diabetes mellitus with diabetic chronic kidney disease; D69.6 Thrombocytopenia, unspecified; D63.1 Anemia in chronic kidney disease; E87.6 Hypokalemia; E78.00 Pure hypercholesterolemia, unspecified; I08.0 Rheumatic disorders of both mitral and aortic valves; E80.6 Other disorders of bilirubin metabolism; I48.0 Paroxysmal atrial fibrillation; I25.10 Atherosclerotic heart disease of native coronary artery without angina pectoris; N18.30 Chronic kidney disease, stage 3 unspecified; Z91.81 History of falling; Z68.23 Body mass index [BMI] 23.0-23.9, adult; Z82.49 Family history of ischemic heart disease and other diseases of the circulatory system; Z82.3 Family history of stroke
CPT/HCPCS: 36415; 36416; 51701; 70450; 70551; 71045; 72125; 74176; 76705; 80048; 80053; 80076; 81003; 82140; 82247; 82390; 82525; 82553; 83690; 83735; 83880; 84145; 84443; 84484; 85025; 85610; 85730; 87040; 87086; 93005; 93306; 93880; 95816; 95819; 95957; 96365; 96375; 96376; G0378; J1940; J2405; J3475; J7050; U0002; U0003; U0005